=== PATIENT | female | born 1985 | race Caucasian/White ===

== ENCOUNTER 2017-08-20 13:05 | Emergency (ER) | payer SELFPAY ==
[2011-12-03 22:39] VITALS: BP 109/59
[2017-08-20] MEDS ORDERED: Sodium Chloride 0.9% 1000 ML 1,000 ML IV STA ×2 (13:28→14:33)
[2017-08-20] MEDS ORDERED: Phenergan 25 MG INJ IV ONE (13:28)
[2017-08-20] MEDS ORDERED: Sodium Chloride 0.9% 1000 ML 1,000 ML ONE ×2 (13:33→14:46)
[2017-08-20] MEDS ORDERED: Phenergan 25 MG INJ ONE (13:33)
--- NOTE | 2017-08-20 13:34 | ERPHSYRPT ---
- History of Present Illness Time Seen by Provider: 08/20/17 13:24 Source: patient Exam Limitations: no limitations Patient Subjective Stated Complaint: vomting since , nausea, more that ten times today,unable to eat. was seen at [facility] on and given zofran. Triage Nursing Assessment: pt alert, resp easy, skin w/d/p, no pain just nausea , no edema, vomited x1 in waiting room Physician History: 31-year-old white female arrives with complaint of vomiting persistently for 3 days. She has not had any fevers no dysuria no hematuria. She was seen at [facility] 3 days ago she was given a prescription for Zofran. She states that she continues to vomit. Past medical history includes vaginal bacterial infections, hypothyroidism, palpitations, ovarian cysts, GERD, palpitations Past surgical history includes cholecystectomy Timing/Duration: day(s) (3 days) Severity: moderate Modifying Factors: Improves With: other (patient given a prescription at [facility] did not fill apparently has some at home) Associated Symptoms: nausea, vomiting, abdominal pain, No shortness of breath, No heartburn, No diaphoresis, No cough, No chills, No chest pain, No fever, No headaches, No loss of appetite, No malaise, No rash, No syncope, No seizure Allergies/Adverse Reactions: ibuprofen [From Motrin] Allergy (Verified 08/20/17 13:21) Penicillins Allergy (Verified 10/16/14 19:08) sulfamethoxazole [From Bactrim] Allergy (Verified 08/20/17 13:21) trimethoprim [From Bactrim] Allergy (Verified 08/20/17 13:21) Home Medications: Esomeprazole Magnesium [Nexium] 20 mg PO DAILY 10/16/14 [History] Levothyroxine Sodium 50 Mcg [Synthroid 50 Mcg] 50 mcg PO DAILY 10/16/14 [ History] Alprazolam 1 mg [Xanax 1 mg] 1 mg Q6-8HPRN PRN 08/20/17 [History] Diltiazem HCl [Cardizem LA] 120 mg DAILY 08/20/17 [History] Duloxetine HCl 20 mg DAILY 08/20/17 [History] Omeprazole 40 mg BID 08/20/17 [History] Hx Tetanus, Diphtheria Vaccination/Date Given: No Hx Influenza Vaccination/Date Given: No Hx Pneumococcal Vaccination/Date Given: No Immunizations Up to Date: Yes - Review of Systems Constitutional: No Fever, No Chills Eyes: No Symptoms Ears, Nose, & Throat: No Symptoms Respiratory: No Cough, No Dyspnea Cardiac: No Chest Pain, No Edema, No Syncope Abdominal/Gastrointestinal: Abdominal Pain, Nausea, Vomiting Genitourinary Symptoms: No Symptoms Musculoskeletal: No Back Pain, No Neck Pain Skin: No Rash Neurological: No Dizziness, No Focal Weakness, No Sensory Changes Psychological: No Symptoms Endocrine: No Symptoms All Other Systems: Reviewed and Negative - Past Medical History Pertinent Past Medical History: Yes (recurrent vaginal bacterial infections, no hx of STD) Cardiac History: Arrhythmia, Other Endocrine Medical History: Hypothyroidism GI Medical History: GERD Psycho-Social History: Depression Female Reproductive Disorders: Other Other Medical History: Palpitations, bacterial vaginosis, ovarian cysts, - Past Surgical History Past Surgical History: Yes Gastrointestinal: Cholecystectomy Genitourinary: Other - Social History Smoking Status: Former smoker Exposure to second hand smoke: No Drug Use: none Patient Lives Alone: No - Female History Hx Last Menstrual Period: now Hx Now: No - Nursing Vital Signs Nursing Vital Signs: Initial Vital Signs Pulse Rate 72 08/20/17 14:00 Respiratory Rate 16 08/20/17 14:00 Blood Pressure 138/75 08/20/17 14:00 O2 Sat by Pulse Oximetry 98 08/20/17 14:00 Pain Scale Pain Intensity 0 - Physical Exam General Appearance: mild distress, other (well-developed well-nourished white female vomiting) Eye Exam: PERRL/EOMI, eyes nml inspection Ears, Nose, Throat Exam: normal ENT inspection, TMs normal, pharynx normal, moist mucous membranes Neck Exam: normal inspection, non-tender, supple, full range of motion Respiratory Exam: normal breath sounds, lungs clear, No respiratory distress Cardiovascular Exam: regular rate/rhythm Gastrointestinal/Abdomen Exam: soft, normal bowel sounds, tenderness ( periumbilical tenderness) Back Exam: normal inspection, normal range of motion, No CVA tenderness, No vertebral tenderness Extremity Exam: normal inspection, normal range of motion, pelvis stable Neurologic Exam: alert, oriented x 3, cooperative, normal mood/affect, nml cerebellar function, nml station & gait, sensation nml, No motor deficits SpO2 Interpretation: normal (98%) Oxygen Delivery: Room Air Ordered Tests: Active Orders 24 hr Category Date Time Status Clean Catch Urine Specimen STAT Care 08/20/17 13:21 Active IV Insertion STAT Care 08/20/17 13:21 Active AMYLASE Stat Lab 08/20/17 13:30 Completed CBC W DIFF Stat Lab 08/20/17 13:30 Completed CMP Stat Lab 08/20/17 13:30 Completed HCG QUALITATIVE,SERUM Stat Lab 08/20/17 13:30 Completed LIPASE Stat Lab 08/20/17 13:30 Completed UA W/ MICROSCOPIC Stat Lab 08/20/17 13:30 Results Medication Summary Generic Name Dose Route Start Last Admin Trade Name Freq PRN Reason Stop Dose Admin Sodium Chloride 1,000 mls @ 999 mls/hr 08/20/17 14:33 08/20/17 14:49 Sodium Chloride 0.9% 1000 Ml IV 08/20/17 15:33 999 mls/hr .Q1H1M STA Administration Discontinued Medications Generic Name Dose Route Start Last Admin Trade Name Freq PRN Reason Stop Dose Admin Sodium Chloride 1,000 mls @ 999 mls/hr 08/20/17 13:28 08/20/17 14:47 Sodium Chloride 0.9% 1000 Ml IV 08/20/17 14:28 Infused .Q1H1M STA Infusion Sodium Chloride Confirm 08/20/17 13:33 Sodium Chloride 0.9% 1000 Ml Administered 08/20/17 13:34 Dose 1,000 mls @ ud .ROUTE .STK-MED ONE Sodium Chloride Confirm 08/20/17 14:46 Sodium Chloride 0.9% 1000 Ml Administered 08/20/17 14:47 Dose 1,000 mls @ ud .ROUTE .STK-MED ONE Ondansetron HCl 4 mg 08/20/17 14:45 08/20/17 14:49 Zofran 4 Mg/2 Ml Vial IV 08/20/17 14:46 4 mg STAT ONE Administration Ondansetron HCl Confirm 08/20/17 14:46 Zofran 4 Mg/2 Ml Vial Administered 08/20/17 14:47 Dose 4 mg .ROUTE .STK-MED ONE Promethazine HCl 12.5 mg 08/20/17 13:28 08/20/17 13:37 Phenergan 25 Mg Inj IV 08/20/17 13:29 12.5 mg STAT ONE Administration Promethazine HCl Confirm 08/20/17 13:33 Phenergan 25 Mg Inj Administered 08/20/17 13:34 Dose 25 mg .ROUTE .STK-MED ONE Lab/Rad Data: Laboratory Result Diagrams 08/20/17 13:30 08/20/17 13:30 Laboratory Results 08/20/17 08/20/17 08/20/17 Range/Units 13:30 13:30 13:30 WBC (4.0-10.5) K/mm3 RBC (4.1-5.4) M/mm3 Hgb (12.0-16.0) gm/dl Hct (35-47) % MCV (78-100) fl MCH (26-32) pg MCHC (32-36) g/dl RDW (11.5-14.0) % Plt Count (150-450) K/mm3 MPV (6-9.5) fl Gran % (36.0-66.0) % Eos # (Auto) (0-0.5) Absolute Lymphs (auto) (1.0-4.6) Absolute Monos (auto) (0.0-1.3) Lymphocytes % (24.0-44.0) % Monocytes % (0.0-12.0) % Eosinophils % (0.00-5.0) % Basophils % (0.0-0.4) % Absolute Granulocytes (1.4-6.9) Basophils # (0-0.4) Sodium 138 (137-145) mmol/L Potassium 3.5 (3.5-5.1) mmol/L Chloride 97 L (98-107) mmol/L Carbon Dioxide 29 (22-30) mmol/L Anion Gap 15.4 H (5-15) MEQ/L BUN 16 (7-17) mg/dL Creatinine 0.74 (0.52-1.04) mg/dL Estimated GFR > 60.0 ML/MIN Glucose 102 (74-106) mg/dL Calcium 9.9 (8.4-10.2) mg/dL Total Bilirubin 0.80 (0.2-1.3) mg/dL AST 21 (14-36) U/L ALT 21 (0-35) U/L Alkaline Phosphatase 76 (38-126) U/L Serum Total Protein 8.1 (6.3-8.2) g/dL Albumin 5.0 (3.5-5.0) g/dL Amylase 69 (30-110) U/L Lipase 40 (23-300) U/L Serum , Qual NEGATIVE (Negative) Ur Collection Type VOID Urine Color YELLOW (YELLOW) Urine Appearance HAZY (CLEAR) Urine pH 7.0 (5-6) Ur Specific [place] 1.010 (1.005-1.025) Urine Protein NEGATIVE (Negative) Urine Ketones TRACE (NEGATIVE) Urine Blood 50 (0-5) Matthew/ul Urine Nitrite NEGATIVE (NEGATIVE) Urine Bilirubin NEGATIVE (NEGATIVE) Urine Urobilinogen NORMAL (0-1) mg/dL Ur Leukocyte Esterase TRACE (NEGATIVE) Urine Microscopic RBC 2-5 (0-2) /HPF Urine Microscopic WBC 0-2 (0-5) /HPF Ur Epithelial Cells MODERATE (FEW) /HPF Urine Bacteria FEW (NEGATIVE) /HPF Urine Culture Reflexed Pending Urine Glucose NEGATIVE (NEGATIVE) mg/dL Specimen Received 08/20/2017 1400 08/20/17 Range/Units 13:30 WBC 14.2 H (4.0-10.5) K/mm3 RBC 5.69 H (4.1-5.4) M/mm3 Hgb 16.1 H (12.0-16.0) gm/dl Hct 47.5 H (35-47) % MCV 83.5 (78-100) fl MCH 28.2 (26-32) pg MCHC 33.9 (32-36) g/dl RDW 14.1 H (11.5-14.0) % Plt Count 419 (150-450) K/mm3 MPV 11.1 H (6-9.5) fl Gran % 76.7 H (36.0-66.0) % Eos # (Auto) 0.01 (0-0.5) Absolute Lymphs (auto) 2.32 (1.0-4.6) Absolute Monos (auto) 0.97 (0.0-1.3) Lymphocytes % 16.3 L (24.0-44.0) % Monocytes % 6.8 (0.0-12.0) % Eosinophils % 0.1 (0.00-5.0) % Basophils % 0.1 (0.0-0.4) % Absolute Granulocytes 10.87 H (1.4-6.9) Basophils # 0.02 (0-0.4) Sodium (137-145) mmol/L Potassium (3.5-5.1) mmol/L Chloride (98-107) mmol/L Carbon Dioxide (22-30) mmol/L Anion Gap (5-15) MEQ/L BUN (7-17) mg/dL Creatinine (0.52-1.04) mg/dL Estimated GFR ML/MIN Glucose (74-106) mg/dL Calcium (8.4-10.2) mg/dL Total Bilirubin (0.2-1.3) mg/dL AST (14-36) U/L ALT (0-35) U/L Alkaline Phosphatase (38-126) U/L Serum Total Protein (6.3-8.2) g/dL Albumin (3.5-5.0) g/dL Amylase (30-110) U/L Lipase (23-300) U/L Serum , Qual (Negative) Ur Collection Type Urine Color (YELLOW) Urine Appearance (CLEAR) Urine pH (5-6) Ur Specific [place] (1.005-1.025) Urine Protein (Negative) Urine Ketones (NEGATIVE) Urine Blood (0-5) Matthew/ul Urine Nitrite (NEGATIVE) Urine Bilirubin (NEGATIVE) Urine Urobilinogen (0-1) mg/dL Ur Leukocyte Esterase (NEGATIVE) Urine Microscopic RBC (0-2) /HPF Urine Microscopic WBC (0-5) /HPF Ur Epithelial Cells (FEW) /HPF Urine Bacteria (NEGATIVE) /HPF Urine Culture Reflexed Urine Glucose (NEGATIVE) mg/dL Specimen Received - Progress Progress: improved Progress Note: 08/20/17 14:21 31-year-old white female arrives with complaint of vomiting for 3 days she stated that she had some periumbilical tenderness mostly from vomiting patient states she was seen at [facility] 3 days ago she states she was given a pain medication also given Zofran. She states she continued to vomit she apparently did not fill her Zofran she states she had this at home. When I walk into the room patient is sitting up and of vomiting I do not see a lot of production I sent for old chart from [facility] from August 18, 2017 chart at [facility] shows that patient has a history of GERD, celiac disease esophageal cancer, fibromyalgia, EGD She apparently had begun vomiting on 18 August after eating at [email or web address] patient had a white count at [facility] 17.2 hemoglobin 15.2, hematocrit 45.9 Patient's chemistry showed a sodium of 140 potassium 3.4 chloride 105 bicarbonate 27 BUN 8 creatinine 0.8 glucose 140 patient's urinalysis at that time showed a specific gravity 1.013 pH of 80-2 white cells and 0-5 red cells Urine tox screen showed opiates positive and cannabinoids positive Patient's CT of the abdomen done at [facility] also showed a small low density lesion in the inferior right lower lobe which may represent a partially calcified granuloma or harmatoma there were no acute abnormalities noted. Patient was given fentanyl at [facility], and Compazine she was discharged with a prescription for Zofran patient apparently does have a history of celiac disease and apparently had been having intermittent abdominal pain for 5 years according to the ER doctor at [facility] On arrival here patient is vomiting she has some. Umbilical tenderness. She is given 1 L of normal saline also given 12.5 mg of Phenergan IV Patient's chemistry is essentially normal with the BUN of 16 creatinine 0.74 glucose 102 sodium is 135 potassium 3.5 chloride is slightly low at 97 amylase and lipase are 69 and 40 patient white count is elevated but improved from 3 days ago with a white count of 14.2 hemoglobin is 16.1 hematocrit is 47.5 hCG is negative Impression persistent nausea and vomiting. History of celiac disorder. . 08/20/17 14:33 I rechecked the patient she is feeling better after receiving the IV normal saline and the Phenergan. Patient does have a white count of 14,000 but this is improved from 17,000 3 days ago she is not . She does state that she does have a history of celiac disease. Patient's chemistry is normal today. Will plan to give patient a second liter of normal saline. Will plan on read releasing the patient with Phenergan 25 mg orally every 4-6 hours as needed for nausea and vomiting. I did explore the patient's positive cannabinoids with the patient she states she uses marijuana secondary to nausea. I did state that there is such a thing as cyclic vomiting syndrome which can occur with marijuana use. She stated she hasn't been smoking for 3 or 4 days. - Departure Time of Disposition: 15:05 Departure Disposition: Home Clinical Impression: History of celiac disease Vomiting Qualifiers: Vomiting type: unspecified Vomiting Intractability: non-intractable Nausea presence: with nausea Qualified Code(s): R11.2 - Nausea with vomiting, unspecified Abdominal pain Qualifiers: Abdominal location: periumbilical Qualified Code(s): R10.33 - Periumbilical pain Condition: Fair Critical Care Time: No Referrals: DUKE MOLINA [Primary Care Provider] - Additional Instructions: Return home. Plenty of fluids, clear fluids only 24-48 hours if nausea and vomiting. Phenergan 25 mg orally every 4-6 hours as needed for nausea and vomiting. Zofran as prescribed by [facility]. Follow-up with your family doctor. Return for acute distress or for severe symptoms. Prescriptions: Promethazine HCl 25 mg [Phenergan 25 mg] 25 mg PO Q4-6HPRN PRN #12 tablet PRN Reason: nausea,vomiting, or abd. pain
[2017-08-20 13:36] LABS: BASOPHIL % 0.1 % (0.0-0.4); Basophil (Absolute #) 0.02 (0-0.4); Eosinophil % 0.1 % (0.00-5.0); Eosinophil (Absolute #) 0.01 (0-0.5); Granulocyte Absolute (ANC) 10.87 (1.4-6.9); Granulocytes % 76.7 % (36.0-66.0); Hematocrit 47.5 % (35-47); Hemoglobin 16.1 gm/dl (12.0-16.0); Lymphocyte (Absolute #) 2.32 (1.0-4.6); Lymphocytes % 16.3 % (24.0-44.0); Mean Cell Volume 83.5 fl (78-100); Mean Corpuscular Hgb Concent. 33.9 g/dl (32-36); Mean Platelet Volume 11.1 fl (6-9.5); Monocyte (Absolute #) 0.97 (0.0-1.3); Monocytes % 6.8 % (0.0-12.0); Platelet Count 419 K/mm3 (150-450); Red Blood Count 5.69 M/mm3 (4.1-5.4); Red Cell Distribution Width 14.1 % (11.5-14.0); White Blood Count 14.2 K/mm3 (4.0-10.5)
[2017-08-20 13:48] LABS: Mean Corpuscular Hemoglobin 28.2 pg (26-32)
[2017-08-20 14:07] LABS: ALKALINE PHOSPHATASE 76 U/L (38-126); AMYLASE 69 U/L (30-110); ANION GAP 15.4 MEQ/L (5-15); BLOOD UREA NITROGEN 16 mg/dL (7-17); CHLORIDE 97 mmol/L (98-107); Calcium 9.9 mg/dL (8.4-10.2); Carbon Dioxide 29 mmol/L (22-30); Creatinine 1 0.74 mg/dL (0.52-1.04); Glucose 102 mg/dL (74-106); LIPASE 40 U/L (23-300); Potassium 3.5 mmol/L (3.5-5.1); SGOT/AST 21 U/L (14-36); SGPT/ALT 21 U/L (0-35); SODIUM 138 mmol/L (137-145); Total Protein 8.1 g/dL (6.3-8.2)
[2017-08-20 14:22] LABS: Appearance HAZY (CLEAR); Bilirubin NEGATIVE (NEGATIVE); Blood 50 Ery/ul (0-5); Glucose NEGATIVE (NEGATIVE); Ketones TRACE (NEGATIVE); Leukocyte Esterase TRACE (NEGATIVE); Nitrite NEGATIVE (NEGATIVE); Protein,Urine Dip NEGATIVE (Negative); Urobilinogen NORMAL mg/dL (0-1); WBC 0-2 /HPF (0-5)
[2017-08-20 14:23] LABS: Bacteria FEW /HPF (NEGATIVE); Epithelial Cells MODERATE /HPF (FEW)
[2017-08-20] MEDS ORDERED: Zofran 4 MG/2 ML VIAL IV ONE (14:45)
[2017-08-20] MEDS ORDERED: Zofran 4 MG/2 ML VIAL ONE (14:46)
[2017-08-20 15:52] VITALS: BP 131/80; PULSE 70; O2SAT 97
== END 2017-08-20 15:53 | disposition home or self-care (01) ==
LOC: ED 13:05
DX: R11.2 Nausea with vomiting, unspecified (principal); R10.33 Periumbilical pain; Z79.899 Other long term (current) drug therapy; Z87.19 Personal history of other diseases of the digestive system
CPT/HCPCS: 36000; 36415; 80053; 81000; 82150; 83690; 84703; 85025; 96360; 96374; 96375; 99284; J2405; J2550

== ENCOUNTER 2017-08-23 12:47 | Observation (INO) | payer OTHER ==
[2017-08-23] MEDS ORDERED: Sodium Chloride 0.9% 1000 ML 1,000 ML IV STA (13:21)
[2017-08-23] MEDS ORDERED: Zofran 4 MG/2 ML VIAL IV ONE (13:21)
--- NOTE | 2017-08-23 13:28 | ERPHSYRPT ---
- History of Present Illness Time Seen by Provider: 08/23/17 13:19 Source: patient Exam Limitations: no limitations Patient Subjective Stated Complaint: pt here for n/v/ since , was seen here sat for samething and was given zofran and phenergan with no relief, Triage Nursing Assessment: pt alert, resp easy, skin w/d/p. abd soft, no edema, mucus membranse moist Physician History: This is a 31-year-old white female who was seen on August 20, 2017 secondary to nausea and vomiting and epigastric pain She had prior to this been seen at [facility] where she received an extensive workup for the same On August 18, [address] of the abdomen at that time which was normal. She was discharged from the emergency room here at [facility] on August 20, 2016 with a prescription for Phenergan she had a prescriptions for Zofran at home. She states she continues to vomit. Past medical history includes hypothyroidism, arrhythmia, GERD, depression, palpitations, bacterial vaginosis, ovarian cysts. Past surgical history includes cholecystectomy. Social history is positive for alcohol occasionally and occasional marijuana use. Timing/Duration: day(s) (5 days) Severity: moderate Modifying Factors: Improves With: nothing Associated Symptoms: nausea, vomiting, abdominal pain (epigastric abdominal pain ) Allergies/Adverse Reactions: ibuprofen [From Motrin] Allergy (Verified 08/23/17 13:10) Penicillins Allergy (Verified 08/23/17 13:10) sulfamethoxazole [From Bactrim] Allergy (Verified 08/23/17 13:10) trimethoprim [From Bactrim] Allergy (Verified 08/23/17 13:10) Home Medications: Esomeprazole Magnesium [Nexium] 20 mg PO DAILY 10/16/14 [History] Levothyroxine Sodium 50 Mcg [Synthroid 50 Mcg] 50 mcg PO DAILY 10/16/14 [ History] Alprazolam 1 mg [Xanax 1 mg] 1 mg Q6-8HPRN PRN 08/20/17 [History] Diltiazem HCl [Cardizem LA] 120 mg DAILY 08/20/17 [History] Duloxetine HCl 20 mg DAILY 08/20/17 [History] Omeprazole 40 mg BID 08/20/17 [History] Hx Tetanus, Diphtheria Vaccination/Date Given: No Hx Influenza Vaccination/Date Given: No Hx Pneumococcal Vaccination/Date Given: No - Review of Systems Constitutional: No Fever, No Chills Eyes: No Symptoms Ears, Nose, & Throat: No Symptoms Respiratory: No Cough, No Dyspnea Cardiac: No Chest Pain, No Edema, No Syncope Abdominal/Gastrointestinal: Abdominal Pain, Nausea, Vomiting Genitourinary Symptoms: No Dysuria Musculoskeletal: No Back Pain, No Neck Pain Skin: No Rash Neurological: No Dizziness, No Focal Weakness, No Sensory Changes Psychological: No Symptoms Endocrine: No Symptoms All Other Systems: Reviewed and Negative - Past Medical History Pertinent Past Medical History: Yes (recurrent vaginal bacterial infections, no hx of STD) Cardiac History: Arrhythmia, Other Endocrine Medical History: Hypothyroidism GI Medical History: GERD Psycho-Social History: Depression Female Reproductive Disorders: Other Other Medical History: Palpitations, bacterial vaginosis, ovarian cysts, - Past Surgical History Past Surgical History: Yes Gastrointestinal: Cholecystectomy Genitourinary: Other - Social History Smoking Status: Former smoker Exposure to second hand smoke: No Drug Use: marijuana Patient Lives Alone: No - Female History Hx Last Menstrual Period: yesterday Hx Now: No - Nursing Vital Signs Nursing Vital Signs: Initial Vital Signs Temperature 97.6 F 08/23/17 13:03 Pulse Rate 92 H 08/23/17 13:03 Respiratory Rate 18 08/23/17 13:03 Blood Pressure 123/94 08/23/17 13:03 O2 Sat by Pulse Oximetry 99 08/23/17 13:03 Pain Scale Pain Intensity 0 - Physical Exam General Appearance: mild distress, alert Eye Exam: PERRL/EOMI, eyes nml inspection Ears, Nose, Throat Exam: normal ENT inspection, TMs normal, pharynx normal, moist mucous membranes Neck Exam: normal inspection, non-tender, supple, full range of motion Respiratory Exam: normal breath sounds, lungs clear, No respiratory distress Cardiovascular Exam: regular rate/rhythm, normal heart sounds, normal peripheral pulses Gastrointestinal/Abdomen Exam: soft, normal bowel sounds, No tenderness, No mass Back Exam: normal inspection, normal range of motion, No CVA tenderness, No vertebral tenderness Extremity Exam: normal inspection, normal range of motion, pelvis stable Neurologic Exam: alert, oriented x 3, cooperative, electric solderer II-XII nml as tested, normal mood/affect, nml cerebellar function, nml station & gait, sensation nml, No motor deficits Skin Exam: normal color, warm, dry, No rash Lymphatic Exam: No adenopathy SpO2 Interpretation: normal (99%), borderline oxygenation SpO2: 99 Oxygen Delivery: Room Air Ordered Tests: Active Orders 24 hr Category Date Time Status IV Insertion STAT Care 08/23/17 13:21 Active AMYLASE Stat Lab 08/23/17 13:30 Completed CBC W DIFF Stat Lab 08/23/17 13:30 Completed CMP Stat Lab 08/23/17 13:30 Completed CULTURE,URINE Stat Lab 08/23/17 13:28 Received HCG QUALITATIVE,SERUM Stat Lab 08/23/17 13:30 Completed LIPASE Stat Lab 08/23/17 13:30 Completed UA W/ MICROSCOPIC Stat Lab 08/23/17 13:28 Completed Urine Triage Profile Stat Lab 08/23/17 13:56 Ordered Medication Summary Discontinued Medications Generic Name Dose Route Start Last Admin Trade Name Freq PRN Reason Stop Dose Admin Sodium Chloride 1,000 mls @ 999 mls/hr 08/23/17 13:21 08/23/17 14:00 Sodium Chloride 0.9% 1000 Ml IV 08/23/17 14:21 999 mls/hr .Q1H1M STA Administration Sodium Chloride Confirm 08/23/17 13:59 Sodium Chloride 0.9% 1000 Ml Administered 08/23/17 14:00 Dose 1,000 mls @ ud .ROUTE .STK-MED ONE Ondansetron HCl 4 mg 08/23/17 13:21 08/23/17 14:00 Zofran 4 Mg/2 Ml Vial IV 08/23/17 13:22 4 mg STAT ONE Administration Ondansetron HCl Confirm 08/23/17 13:58 Zofran 4 Mg/2 Ml Vial Administered 08/23/17 13:59 Dose 4 mg .ROUTE .STK-MED ONE Lab/Rad Data: Laboratory Result Diagrams 08/23/17 13:30 08/23/17 13:30 Laboratory Results 08/23/17 08/23/17 08/23/17 Range/Units 13:30 13:30 13:30 WBC 13.8 H (4.0-10.5) K/mm3 RBC 6.00 H (4.1-5.4) M/mm3 Hgb 17.2 H (12.0-16.0) gm/dl Hct 48.9 H (35-47) % MCV 81.5 (78-100) fl MCH 28.6 (26-32) pg MCHC 35.2 (32-36) g/dl RDW 13.8 (11.5-14.0) % Plt Count 380 (150-450) K/mm3 MPV 10.5 H (6-9.5) fl Gran % 81.6 H (36.0-66.0) % Eos # (Auto) 0.02 (0-0.5) Absolute Lymphs (auto) 1.70 (1.0-4.6) Absolute Monos (auto) 0.81 (0.0-1.3) Lymphocytes % 12.3 L (24.0-44.0) % Monocytes % 5.9 (0.0-12.0) % Eosinophils % 0.1 (0.00-5.0) % Basophils % 0.1 (0.0-0.4) % Absolute Granulocytes 11.24 H (1.4-6.9) Basophils # 0.02 (0-0.4) Sodium 137 (137-145) mmol/L Potassium 3.7 (3.5-5.1) mmol/L Chloride 96 L (98-107) mmol/L Carbon Dioxide 28 (22-30) mmol/L Anion Gap 16.8 H (5-15) MEQ/L BUN 14 (7-17) mg/dL Creatinine 0.72 (0.52-1.04) mg/dL Estimated GFR > 60.0 ML/MIN Glucose 119 H (74-106) mg/dL Calcium 9.7 (8.4-10.2) mg/dL Total Bilirubin 1.20 (0.2-1.3) mg/dL AST 64 H (14-36) U/L ALT 132 H (0-35) U/L Alkaline Phosphatase 83 (38-126) U/L Serum Total Protein 8.6 H (6.3-8.2) g/dL Albumin 5.1 H (3.5-5.0) g/dL Amylase 77 (30-110) U/L Lipase 65 (23-300) U/L Serum , Qual NEGATIVE (Negative) Ur Collection Type Urine Color (YELLOW) Urine Appearance (CLEAR) Urine pH (5-6) Ur Specific [place] (1.005-1.025) Urine Protein (Negative) Urine Ketones (NEGATIVE) Urine Blood (0-5) Matthew/ul Urine Nitrite (NEGATIVE) Urine Bilirubin (NEGATIVE) Urine Urobilinogen (0-1) mg/dL Ur Leukocyte Esterase (NEGATIVE) Urine Microscopic RBC (0-2) /HPF Urine Microscopic WBC (0-5) /HPF Ur Epithelial Cells (FEW) /HPF Urine Bacteria (NEGATIVE) /HPF Urine Mucus (NEGATIVE) /HPF Urine Culture Reflexed (NO) Urine Glucose (NEGATIVE) mg/dL Specimen Received 08/23/17 Range/Units 13:28 WBC (4.0-10.5) K/mm3 RBC (4.1-5.4) M/mm3 Hgb (12.0-16.0) gm/dl Hct (35-47) % MCV (78-100) fl MCH (26-32) pg MCHC (32-36) g/dl RDW (11.5-14.0) % Plt Count (150-450) K/mm3 MPV (6-9.5) fl Gran % (36.0-66.0) % Eos # (Auto) (0-0.5) Absolute Lymphs (auto) (1.0-4.6) Absolute Monos (auto) (0.0-1.3) Lymphocytes % (24.0-44.0) % Monocytes % (0.0-12.0) % Eosinophils % (0.00-5.0) % Basophils % (0.0-0.4) % Absolute Granulocytes (1.4-6.9) Basophils # (0-0.4) Sodium (137-145) mmol/L Potassium (3.5-5.1) mmol/L Chloride (98-107) mmol/L Carbon Dioxide (22-30) mmol/L Anion Gap (5-15) MEQ/L BUN (7-17) mg/dL Creatinine (0.52-1.04) mg/dL Estimated GFR ML/MIN Glucose (74-106) mg/dL Calcium (8.4-10.2) mg/dL Total Bilirubin (0.2-1.3) mg/dL AST (14-36) U/L ALT (0-35) U/L Alkaline Phosphatase (38-126) U/L Serum Total Protein (6.3-8.2) g/dL Albumin (3.5-5.0) g/dL Amylase (30-110) U/L Lipase (23-300) U/L Serum , Qual (Negative) Ur Collection Type CLEAN CATCH Urine Color DARK YELLOW (YELLOW) Urine Appearance HAZY (CLEAR) Urine pH 5.0 (5-6) Ur Specific [place] 1.025 (1.005-1.025) Urine Protein 100 (Negative) Urine Ketones MODERATE (NEGATIVE) Urine Blood 250 (0-5) Matthew/ul Urine Nitrite NEGATIVE (NEGATIVE) Urine Bilirubin SMALL (NEGATIVE) Urine Urobilinogen 1 (0-1) mg/dL Ur Leukocyte Esterase 2+ (NEGATIVE) Urine Microscopic RBC 5-10 (0-2) /HPF Urine Microscopic WBC 5-10 (0-5) /HPF Ur Epithelial Cells FEW (FEW) /HPF Urine Bacteria MODERATE (NEGATIVE) /HPF Urine Mucus MANY (NEGATIVE) /HPF Urine Culture Reflexed YES (NO) Urine Glucose NEGATIVE (NEGATIVE) mg/dL Specimen Received 08-23-2017 1330 - Progress Progress: improved Progress Note: 08/23/17 14:33 31-year-old white female who was seen at [facility] on August 18, 2017, she was also seen on August 20 here in the emergency room secondary to epigastric pain and and vomiting. Patient had a CT of the abdomen and pelvis at [facility] on 18 August she was given Zofran. She presented to this emergency room for continuing vomiting despite Zofran patient had a CBC that showed an elevated white count of around [address] [facility] 14.2 at this hospital on the she has a white count of 13.8 currently patient's chemistry is essentially normal with the exception of mild elevation in the SGPT and AST patient does have some ketones in her urine patient's anion gap was 16.8 patient with 5-10 white cells 5-10 red cells in her urine but negative nitrites Patient is given 1 L of normal saline she is given Zofran 4 mg IV. She continues to feel nauseous I've discussed this with Dr. Alegre will place patient on observation. order an abdominal ultrasound in the morning provide IV fluids and antiemetics 08/23/17 14:41 - Departure Time of Disposition: 14:42 Departure Disposition: Observation Clinical Impression: persistent nausea and vomiting Abdominal pain Qualifiers: Abdominal location: periumbilical Qualified Code(s): R10.33 - Periumbilical pain Condition: Fair Critical Care Time: No Referrals: DUKE ALEGRE [Primary Care Provider] -
[2017-08-23 13:33] LABS: BASOPHIL % 0.1 % (0.0-0.4); Basophil (Absolute #) 0.02 (0-0.4); Eosinophil % 0.1 % (0.00-5.0); Eosinophil (Absolute #) 0.02 (0-0.5); Granulocyte Absolute (ANC) 11.24 (1.4-6.9); Granulocytes % 81.6 % (36.0-66.0); Hematocrit 48.9 % (35-47); Hemoglobin 17.2 gm/dl (12.0-16.0); Lymphocytes % 12.3 % (24.0-44.0); Mean Cell Volume 81.5 fl (78-100); Mean Corpuscular Hgb Concent. 35.2 g/dl (32-36); Mean Platelet Volume 10.5 fl (6-9.5); Monocyte (Absolute #) 0.81 (0.0-1.3); Monocytes % 5.9 % (0.0-12.0); Platelet Count 380 K/mm3 (150-450); Red Cell Distribution Width 13.8 % (11.5-14.0); White Blood Count 13.8 K/mm3 (4.0-10.5)
[2017-08-23 13:35] LABS: Mean Corpuscular Hemoglobin 28.6 pg (26-32)
[2017-08-23] MEDS ORDERED: Zofran 4 MG/2 ML VIAL ONE (13:58)
[2017-08-23] MEDS ORDERED: Sodium Chloride 0.9% 1000 ML 1,000 ML ONE (13:59)
[2017-08-23 14:02] LABS: ALBUMIN 5.1 g/dL (3.5-5.0); ALKALINE PHOSPHATASE 83 U/L (38-126); AMYLASE 77 U/L (30-110); ANION GAP 16.8 MEQ/L (5-15); BLOOD UREA NITROGEN 14 mg/dL (7-17); CHLORIDE 96 mmol/L (98-107); Calcium 9.7 mg/dL (8.4-10.2); Carbon Dioxide 28 mmol/L (22-30); Creatinine 1 0.72 mg/dL (0.52-1.04); Glucose 119 mg/dL (74-106); LIPASE 65 U/L (23-300); Potassium 3.7 mmol/L (3.5-5.1); SGOT/AST 64 U/L (14-36); SGPT/ALT 132 U/L (0-35); SODIUM 137 mmol/L (137-145); Total Protein 8.6 g/dL (6.3-8.2)
[2017-08-23 14:05] LABS: Appearance HAZY (CLEAR); Bacteria MODERATE /HPF (NEGATIVE); Bilirubin SMALL (NEGATIVE); Blood 250 Ery/ul (0-5); Epithelial Cells FEW /HPF (FEW); Glucose NEGATIVE (NEGATIVE); Ketones MODERATE (NEGATIVE); Leukocyte Esterase 2+ (NEGATIVE); Mucus MANY /HPF (NEGATIVE); Nitrite NEGATIVE (NEGATIVE); Protein,Urine Dip 100 (Negative); Specific Gravity 1.025 (1.005-1.025); Urobilinogen 1 mg/dL (0-1)
[2017-08-23 14:53] LABS: Amphetamine,Urine NEGATIVE (NEGATIVE); Barbiturate,Urine NEGATIVE (NEGATIVE); Benzodiazepine,Urine POSITIVE (NEGATIVE); Cocaine,Urine NEGATIVE (NEGATIVE); Methadone,Urine NEGATIVE (NEGATIVE); Opiate,Urine NEGATIVE (NEGATIVE); PCP,Urine NEGATIVE (NEGATIVE); THC,Urine POSITIVE (NEGATIVE)
[2017-08-23] MEDS ORDERED: TORAdol 30 mg Injection IV PRN (16:01)
[2017-08-23] MEDS: Phenergan 25 MG INJ IV PRN ×2 (16:04→22:04)
[2017-08-23] MEDS ORDERED: XANAX 1 MG PO PRN (16:30)
[2017-08-23] MEDS ORDERED: MEDICATION INTERVENTION PO SCH (16:45)
[2017-08-23] MEDS ORDERED: Cardizem CD 120 MG PO SCH (17:00)
[2017-08-23] MEDS: Sodium Chloride 0.9% 1000 ML 1,000 ML IV SCH (18:59)
[2017-08-23] MEDS: Zofran 4 MG/2 ML VIAL IV PRN (19:00)
[2017-08-23] MEDS: Protonix 40MG Tablet PO SCH (22:02)
[2017-08-23] MEDS: Cardizem CD 120 MG PO SCH (22:03)
[2017-08-23] MEDS: Cymbalta 30 MG Capsule PO SCH (22:03)
[2017-08-23] MEDS: SYNTHROID 50 MCG PO SCH (22:03)
[2017-08-24] MEDS: Zofran 4 MG/2 ML VIAL IV PRN (03:44)
[2017-08-24] MEDS: Sodium Chloride 0.9% 1000 ML 1,000 ML IV SCH ×2 (05:28→16:09)
[2017-08-24 05:48] LABS: BASOPHIL % 0.2 % (0.0-0.4); Basophil (Absolute #) 0.02 (0-0.4); Eosinophil % 1.5 % (0.00-5.0); Eosinophil (Absolute #) 0.14 (0-0.5); Granulocyte Absolute (ANC) 4.57 (1.4-6.9); Granulocytes % 49.1 % (36.0-66.0); Hematocrit 41.7 % (35-47); Hemoglobin 14.1 gm/dl (12.0-16.0); Lymphocyte (Absolute #) 3.49 (1.0-4.6); Lymphocytes % 37.4 % (24.0-44.0); Mean Cell Volume 84.1 fl (78-100); Mean Corpuscular Hemoglobin 28.4 pg (26-32); Mean Corpuscular Hgb Concent. 33.8 g/dl (32-36); Mean Platelet Volume 10.7 fl (6-9.5); Monocytes % 11.8 % (0.0-12.0); Platelet Count 283 K/mm3 (150-450); Red Blood Count 4.96 M/mm3 (4.1-5.4); Red Cell Distribution Width 13.5 % (11.5-14.0); White Blood Count 9.3 K/mm3 (4.0-10.5)
[2017-08-24 06:11] LABS: ALBUMIN 3.7 g/dL (3.5-5.0); ALKALINE PHOSPHATASE 65 U/L (38-126); AMYLASE 68 U/L (30-110); ANION GAP 11.9 MEQ/L (5-15); BLOOD UREA NITROGEN 13 mg/dL (7-17); CHLORIDE 102 mmol/L (98-107); Calcium 8.6 mg/dL (8.4-10.2); Carbon Dioxide 28 mmol/L (22-30); Creatinine 1 0.76 mg/dL (0.52-1.04); Glucose 90 mg/dL (74-106); SGOT/AST 47 U/L (14-36); SGPT/ALT 97 U/L (0-35); SODIUM 139 mmol/L (137-145); Total Protein 6.3 g/dL (6.3-8.2)
[2017-08-24 06:24] LABS: Potassium 2.9 mmol/L (3.5-5.1)
[2017-08-24] MEDS: Phenergan 25 MG INJ IV PRN (07:05)
[2017-08-24] MEDS ORDERED: Miralax Powder 17GM PACKET PO PRN (07:34)
[2017-08-24 08:13] LABS: Appearance HAZY (CLEAR); Bilirubin NEGATIVE (NEGATIVE); Glucose NEGATIVE (NEGATIVE); Ketones MODERATE (NEGATIVE); Leukocyte Esterase TRACE (NEGATIVE); Nitrite NEGATIVE (NEGATIVE); Protein,Urine Dip NEGATIVE (Negative); Urobilinogen 1 mg/dL (0-1)
[2017-08-24 08:14] LABS: Blood NEGATIVE Ery/ul (0-5)
[2017-08-24] MEDS: POTASSIUM CHLORIDE 20 mEq IN WATER 100ML 20 MEQ/100 ML BAG IV SCH ×2 (08:22→11:48)
[2017-08-24] MEDS: D5W/0.45NS W/ 20mEq KCl 1000 ML 1,000 ML IV SCH ×2 (08:22→17:45)
[2017-08-24] MEDS: Cymbalta 30 MG Capsule PO SCH (08:40)
[2017-08-24] MEDS: Protonix 40MG Tablet PO SCH ×2 (08:40→21:33)
[2017-08-24] MEDS: Cardizem CD 120 MG PO SCH ×2 (08:40→21:33)
[2017-08-24] MEDS: SYNTHROID 50 MCG PO SCH (08:40)
[2017-08-24] MEDS ORDERED: Levofloxacin 500MG/100ML D5W 500 MG/100 ML BAG IV SCH (10:00)
[2017-08-24] MEDS ORDERED: NON-FORMULARY ITEM (Duloxetine Hcl [Cymbalta] 60 MG) PO SCH (10:00)
--- NOTE | 2017-08-24 11:10 | XRAY ---
Exam: Liver ultrasound from 08/24/2017. Comparison: CT of the abdomen and pelvis with IV contrast from 08/09/2011. Indication: Elevated liver enzymes, nausea/vomiting. Technique: Multiple longitudinal and transverse real-time sonograms were obtained of the liver and right upper quadrant. Findings: The liver is of unremarkable size measuring 12.8 cm in AP dimension on a sagittal image. Liver acoustical architecture appears uniform. No focal hepatic mass or intrahepatic biliary duct distention is seen. Hepatopetal blood flow toward the liver within the portal vein is seen (i.e. normal). The proximal common bile duct measures 4.4 mm. The patient is status post cholecystectomy, and this structure was not visualized. The right kidney measures 10.7 cm in length and reveals no focal mass or hydronephrosis. No free fluid is seen within the right upper quadrant. Transverse images of the pancreas reveal nonvisualization of the distal tail due to adjacent bowel gas. The remainder of the pancreas appears unremarkable. Impression: 1. No sonographic abnormality of the liver is seen. 2. The patient is status post cholecystectomy. 3. The remainder of the right upper quadrant reveal no significant abnormality.
--- NOTE | 2017-08-24 11:17 | XRAY ---
Exam: Renal ultrasound exam from 08/24/2017. Comparison: CT of the abdomen and pelvis with IV contrast from 08/09/2011. Indication: Back pain. Findings: The right kidney measures 10.5 cm in length and 4.4 cm x 4.4 cm in cross section. The right kidney reveals an unremarkable shape and cortical echogenicity. Renal cortex thickness within the lower pole is 1.2 cm on a sagittal image. No right renal mass or hydronephrosis is seen. Color flow imaging within the right kidney appears unremarkable. The left kidney measures 11.95 cm in length and 5.55 cm x 4.9 cm in cross section. Left renal cortical echogenicity and renal shape appear unremarkable. Color flow images of the left kidney are unremarkable. The left renal cortex measures 1.5 cm in width within the lower pole on a sagittal image. No left renal mass or hydronephrosis is seen. The urinary bladder is mildly distended and appears anechoic. Bilateral ureteral jets are seen with color flow imaging. No free fluid is seen within the cul-de-sac. Impression: 1. Unremarkable bilateral renal ultrasound.
[2017-08-25] MEDS: D5W/0.45NS W/ 20mEq KCl 1000 ML 1,000 ML IV SCH (00:10)
[2017-08-25 05:52] LABS: BASOPHIL % 0.2 % (0.0-0.4); Basophil (Absolute #) 0.02 (0-0.4); Eosinophil % 3.4 % (0.00-5.0); Granulocyte Absolute (ANC) 4.76 (1.4-6.9); Granulocytes % 54.2 % (36.0-66.0); Hematocrit 41.4 % (35-47); Hemoglobin 13.9 gm/dl (12.0-16.0); Lymphocyte (Absolute #) 2.85 (1.0-4.6); Lymphocytes % 32.5 % (24.0-44.0); Mean Cell Volume 84.7 fl (78-100); Mean Corpuscular Hemoglobin 28.4 pg (26-32); Mean Corpuscular Hgb Concent. 33.6 g/dl (32-36); Mean Platelet Volume 10.5 fl (6-9.5); Monocyte (Absolute #) 0.85 (0.0-1.3); Monocytes % 9.7 % (0.0-12.0); Platelet Count 288 K/mm3 (150-450); Red Blood Count 4.89 M/mm3 (4.1-5.4); Red Cell Distribution Width 13.5 % (11.5-14.0); White Blood Count 8.8 K/mm3 (4.0-10.5)
[2017-08-25 06:14] LABS: ALBUMIN 3.6 g/dL (3.5-5.0); ALKALINE PHOSPHATASE 58 U/L (38-126); ANION GAP 12.8 MEQ/L (5-15); BLOOD UREA NITROGEN 9 mg/dL (7-17); CHLORIDE 103 mmol/L (98-107); Calcium 8.7 mg/dL (8.4-10.2); Carbon Dioxide 28 mmol/L (22-30); Creatinine 1 0.61 mg/dL (0.52-1.04); Glucose 117 mg/dL (74-106); Potassium 4.1 mmol/L (3.5-5.1); SGOT/AST 21 U/L (14-36); SGPT/ALT 74 U/L (0-35); SODIUM 140 mmol/L (137-145); Total Protein 6.1 g/dL (6.3-8.2)
--- NOTE | 2017-08-25 08:32 | PCM.DCORD ---
- Discharge Discharge Date: 08/25/17 Condition: Good Prescriptions: Continue Levothyroxine Sodium 50 Mcg [Synthroid 50 Mcg] 50 mcg PO DAILY Omeprazole 40 mg PO BID Duloxetine HCl 20 mg PO DAILY Diltiazem HCl [Cardizem LA] 120 mg PO BID Alprazolam 1 mg [Xanax 1 mg] 1 mg PO BIDPRN PRN PRN Reason: Anxiety Duloxetine HCl [Cymbalta] 60 mg PO DAILY Changed Promethazine HCl 25 mg [Phenergan 25 mg] 25 mg PO QIDPRN PRN #28 tablet PRN Reason: nausea,vomiting, or abd. pain Follow up with: DUKE MOLINA [Primary Care Provider] - 1 Week
--- NOTE | 2017-08-25 08:50 | SSS ---
DISCHARGE DIAGNOSES: 1) INTRACTABLE VOMITING. 2) DEHYDRATION. 3) URINARY TRACT INFECTION. HISTORY: The patient is a 31 year-old white female who reports she has been having problems with abdominal pain, nausea and vomiting off and on over the past several months dating back to approximately March. She reports she has lost about 50 pounds over the past six months. The patient has been seen by Dr. Tello a GI specialist who has done multiple examinations. She reports she did have esophagus stretched but was not having swallowing difficulties at that time. Apparently the diagnosis was unclear. She did rule out for Crohn's and other inflammatory bowel processes at that time. The patient reports that usually her vomiting issues would last a day and then they would resolve. She has been having these off and on but this last time it has lasted for several days resulting in several visits to the local emergency room of [facility] and our facility prompting the admission. PAST MEDICAL/SURGICAL HISTORY: Significant for previous cholecystectomy. She has had upper and lower endoscopy procedure performed. She has had childbirth. She does have some anxiety issues. MEDICATIONS: Her home medications presently include Nexium 20 mg a day, Synthroid 50 mcg daily, Alprazolam 1 mg every 8 hours PRN anxiety, diltiazem 120 mg a day, duloxetine 20 mg daily, omeprazole also at 40 mg b.i.d. ALLERGIES: IBUPROFEN, PENICILLIN, SULFA MEDICATIONS, TRIMETHOPRIM. PHYSICAL EXAMINATION: Revealed a well-nourished, well-developed 31 year-old white female in no obvious distress. She is alert and oriented x3. Her vital signs on admission showed temperature 97.6F, pulse 92, respiratory rate 18, blood pressure 123/94. O2 saturation 95% on room air. HEENT: Normocephalic, atraumatic. Pupils equal round reactive to light. Extraocular movements intact. Oropharynx is pink and moist. NECK: Supple without lymphadenopathy, thyromegaly or JVD. CHEST: Clear to auscultation with good air movement bilaterally. HEART: Regular rate and rhythm without murmurs, rubs or gallops. ABDOMEN: Soft. No palpable masses are felt. EXTREMITIES: Without clubbing, cyanosis or edema. NEUROLOGIC: The patient is alert and oriented x3 with no focal deficits. LAB DATA AND TESTS: Initially showed a white blood cell count elevated at 13,800. On the emergency room visits she did have elevations of her white blood cell count up to 17,000. This has actually been decreasing over the past few visits to the point where she is at 13,800 on her admission to the emergency room here. Her hemoglobin is 17.2, PLT count 380,000. There is what appears to be a bit of a left shift with 81.6% granulocytes. HCG was negative. Her metabolic panel showed a sugar of 119 nonfasting, BUN 14, creatinine 0.72. Electrolytes were normal. Total protein was 8.6 which is somewhat elevated. Bilirubin 1.2. AST 64 and ALT 132. Amylase and lipase were normal. UA did show 5-10 white blood cells per high power field. It was negative for nitrite. It did show ketones. Urine drug screen was positive for benzodiazepine and THC. HOSPITAL COURSE: The patient was admitted to the medicine restrepo with IV fluid hydration. She was placed empirically on antibiotics for possible urinary tract infection although the cultures had previously been negative with only what appeared to be a skin contaminant. The patient did tell me that she had been having problems with constipation and has not had a bowel movement in several days. She was given MiraLAX after which she did have a bowel movement and feeling better on the morning of 08/25/2017 after fluid hydration and evacuation of her bowels. We did discuss with the patient her THC usage and there is concern for possible role in her GI disturbance. The patient did have her potassium drop to 2.9 on 08/24/2017 but by 08/25/2017 was back to the normal range again. Her blood and urine cultures are thus far negative. She was feeling much better by the morning of 08/25/2017 and had been able to eat and keep down food overnight since hospital admission. She is therefore felt to be ready for discharge home on the morning of 08/25/2017. She reports that she will be contacting her GI specialist, Dr. Tello, upon release from the hospital. She was given Phenergan tablets for use for recurrent nausea. She has an appointment to see me in the office in one week.
[2017-08-25] MEDS ORDERED: Phenergan 25 MG INJ IM ONE (09:48)
[2017-08-25] MEDS ORDERED: Phenergan 25 MG INJ IM PRN (11:08)
[2017-08-25 11:32] VITALS: BP 110/69; PULSE 75; O2SAT 98
== END 2017-08-25 11:37 | disposition home or self-care (01) ==
LOC: ED 12:47 → MED SURG 15:10
PROVIDERS: ADMIT Family Medicine; ATTEND Family Medicine
DX: R11.10 Vomiting, unspecified (principal); E86.0 Dehydration; N39.0 Urinary tract infection, site not specified; F41.9 Anxiety disorder, unspecified; Z79.899 Other long term (current) drug therapy
CPT/HCPCS: 36415; 76705; 76770; 80053; 80307; 81000; 81002; 82150; 82248; 83690; 84132; 84703; 85025; 87040; 87086; 96360; 96374; 99285; G0378; J1885; J1956; J2405; J2550; J3480; A9270-GY

== ENCOUNTER 2019-09-24 05:58 | Day surgery (SDC) | payer OTHER ==
[2019-09-24] MEDS ORDERED: Lactated Ringers 1,000 ML IV SCH (06:30)
[2019-09-24] MEDS ORDERED: DIPRIVAN 200 MG/20 ML IV ONE (07:34)
[2019-09-24] MEDS ORDERED: Ketamine HCl 50 MG/ML ONE (07:35)
[2019-09-24 08:40] VITALS: O2SAT 96
[2019-09-24 08:45] VITALS: BP 122/74; PULSE 82
--- NOTE | 2019-09-24 14:05 | OP ---
SURGERY DATE/TIME: 09/24/2019 0733 PREOPERATIVE DIAGNOSIS: Abdominal pain and rectal bleeding. POSTOPERATIVE DIAGNOSIS: Normal colon. PROCEDURE: Colonoscopy. SURGEON: Dr. Alegre. ANESTHESIA: MAC. Medications given by anesthesia department. HISTORY: The patient is a 33 year old white female who presents now for colonoscopic evaluation. The patient reports she previously had a colonoscopy years ago that was normal but she has been complaining of abdominal pain and recently had some bleeding as well. The patient was felt the need to have endoscopic evaluation to evaluate for the possibility of colitis. The patient was described the risks of the procedure including the risk of perforation, phlebitis, untoward reaction to medication, bleeding and missed lesions. The patient verbalized her understanding and desired to have the procedure performed. DESCRIPTION OF PROCEDURE: The patient was given the medications by the anesthesia department. She had continuous pulse oximetry, ECG monitoring, intermittent blood pressure monitoring and tidal CO2 monitoring during the examination. She was placed in the left lateral decubitus position. A digital rectal examination was performed and revealed normal anal sphincter tone and no masses. The flexible Olympus pediatric colonoscope was used to intubate the rectum. A view of the colon was developed sequentially to the cecum including a short distance in the terminal ileum. Upon insertion and withdrawal, including a retroflex view in the rectum, no mucosal lesions were encountered. The scope was removed from the patient who tolerated the procedure well and was sent back to OP recovery in good condition. The prep was noted to be good.
== END 2019-09-24 08:50 | disposition home or self-care (01) ==
LOC: SDC 05:58
PROVIDERS: ATTEND Family Medicine
DX: R10.9 Unspecified abdominal pain (principal); K62.5 Hemorrhage of anus and rectum
CPT/HCPCS: 84703; J2704

== ENCOUNTER 2020-11-15 08:34 | Emergency (ER) | payer OTHER ==
--- NOTE | 2020-11-15 08:50 | ERPHSYRPT ---
- History of Present Illness Time Seen by Provider: 11/15/20 08:50 Historian: patient Exam Limitations: no limitations Patient Subjective Stated Complaint: pt here for vomiting since lat sat. [facility] and was seen againt there yesterday for same thing, denies any other co's. Triage Nursing Assessment: pt alert, vomitng, resp easy ,skin w/d/p. abd soft, no edema noted Physician History: This is a 34-year-old white female who has had intermittent vomiting over the last several days. Patient does have a history of smoking marijuana often. However, she tells me that she last smoked marijuana 10 days ago. Patient states she has had a cholecystectomy in the past but no other abdominal surgeries. Patient also said that she has had this kind of episode 3 years ago. She underwent a work-up but the work-up did not yield a diagnosis. Patient denies chest pain. She denies shortness of breath. She has not had any diarrhea. She has no significant abdominal pain. Patient was admitted into [facility] within the last week for same symptoms. She also was seen yesterday at [facility] because of recurrent symptoms after discharge to home. Patient was discharged to home with prescription for Zofran. It is not helping her symptoms. Timing/Duration: intermittent, other (Persistent) Abdominal Pain Onset Location: generalized abdomen (Mild) Pain Radiation: no radiation Severity of Pain-Max: mild Severity of Pain-Current: mild Modifying Factors: Improves With: vomiting Associated Symptoms: vomiting Previous symptoms: same symptoms as today, recently seen, recent hospitalizat ion, recently treated Allergies/Adverse Reactions: aspirin Allergy (Severe, Verified 11/15/20 08:49) throat swelling ibuprofen [From Motrin] Allergy (Severe, Verified 11/15/20 08:49) throat swelling Penicillins Allergy (Mild, Verified 11/15/20 08:49) Rash sulfamethoxazole [From Bactrim] Allergy (Mild, Verified 11/15/20 08:49) Rash trimethoprim [From Bactrim] Allergy (Mild, Verified 11/15/20 08:49) Rash Home Medications: Levothyroxine Sodium 50 Mcg [Synthroid 50 Mcg] 50 mcg PO DAILY 10/16/14 [History] Diltiazem HCl [Cardizem LA] 120 mg PO BID 08/20/17 [History] Duloxetine HCl [Cymbalta] 60 mg PO DAILY 08/23/17 [History] Loratadine 10 mg [Claritin 10 mg] 10 mg PO DAILY 09/20/19 [History] Metoprolol Tartrate 25 mg [Lopressor 25MG Tab] 25 mg PO BID 03/17/20 [History] Hx Tetanus, Diphtheria Vaccination/Date Given: No Hx Influenza Vaccination/Date Given: No Hx Pneumococcal Vaccination/Date Given: No Immunizations Up to Date: Yes Travel Risk - International Travel Have you traveled outside of the country in past 3 weeks: No - Coronavirus Screening Are you exhibiting any of the following symptoms?: Yes Symptoms: Vomiting/Diarrhea Close contact with a COVID-19 positive Pt in past 14-21 Days: No - Vaccine Status Have you recieved a Covid-19 vaccination: No - Review of Systems Constitutional: Weakness Eyes: No Symptoms Ears, Nose, & Throat: No Symptoms Respiratory: No Symptoms Cardiac: No Symptoms Abdominal/Gastrointestinal: Vomiting Genitourinary Symptoms: No Symptoms Musculoskeletal: No Symptoms Skin: No Symptoms Neurological: No Symptoms Psychological: No Symptoms Endocrine: No Symptoms Hematologic/Lymphatic: No Symptoms Immunological/Allergic: No Symptoms All Other Systems: Reviewed and Negative - Past Medical History Pertinent Past Medical History: Yes Neurological History: No Pertinent History ENT History: No Pertinent History Cardiac History: Arrhythmia, Other Respiratory History: No Pertinent History Endocrine Medical History: Hypothyroidism Musculoskeletal History: No Pertinent History GI Medical History: Colitis, GERD History: No Pertinent History Psycho-Social History: Depression Female Reproductive Disorders: Other Other Medical History: Palpitations- Tachycardia controlled with meds, bacterial vaginosis, ovarian cysts, HYSTOPLASMOSIS, ESOPHAGEAL CANER, sleep apnea - Past Surgical History Past Surgical History: Yes Neuro Surgical History: No Pertinent History Cardiac: No Pertinent History Respiratory: No Pertinent History Gastrointestinal: Cholecystectomy Genitourinary: No Pertinent History Musculoskeletal: No Pertinent History Female Surgical History: No Pertinent History Other Surgical History: BIOPSY LYMPH NODES, LUNG BIOPSY - Social History Smoking Status: Current every day smoker Exposure to second hand smoke: Yes Drug Use: marijuana Patient Lives Alone: No - Female History Hx Last Menstrual Period: 2 weeks ago Hx Now: No - Nursing Vital Signs Nursing Vital Signs: Initial Vital Signs Temperature 97.5 F 11/15/20 08:50 Pulse Rate 102 H 11/15/20 08:50 Respiratory Rate 18 11/15/20 08:50 Blood Pressure 126/92 11/15/20 08:50 O2 Sat by Pulse Oximetry 98 11/15/20 08:50 Pain Scale Pain Intensity 0 - Physical Exam General Appearance: no apparent distress, alert, anxiety Eye Exam: PERRL/EOMI Ears, Nose, Throat Exam: normal ENT inspection, moist mucous membranes Neck Exam: normal inspection, non-tender, supple, full range of motion Respiratory Exam: normal breath sounds, lungs clear, airway intact, No chest tenderness, No respiratory distress Cardiovascular Exam: regular rate/rhythm, normal heart sounds, normal peripheral pulses Gastrointestinal/Abdomen Exam: soft, normal bowel sounds, tenderness (Mild dif fuse), No guarding, No rebound Pelvic Exam: not done Rectal Exam: not done Back Exam: normal inspection, normal range of motion, No CVA tenderness, No vertebral tenderness Extremity Exam: normal inspection, normal range of motion, pelvis stable Neurologic Exam: alert, oriented x 3, cooperative, matrix repairer II-XII nml as tested, normal mood/affect, nml cerebellar function, nml station & gait, sensation nml Skin Exam: normal color, warm, dry Lymphatic Exam: No adenopathy SpO2 Interpretation: normal O2 Delivery: Room Air - Course Nursing assessment & vital signs reviewed: Yes Ordered Tests: Active Orders 24 hr Category Date Time Status Clean Catch Urine Specimen STAT Care 11/15/20 09:03 Active EKG-ER Only STAT Care 11/15/20 09:31 Active IV Insertion STAT Care 11/15/20 08:58 Active ABDOMEN AND PELVIS W/0 CONTRAS [CT] Stat Exams 11/15/20 08:58 Ordered AMYLASE Stat Lab 11/15/20 09:00 Completed CBC W DIFF Stat Lab 11/15/20 09:00 Completed CMP Stat Lab 11/15/20 09:00 Completed LIPASE Stat Lab 11/15/20 09:00 Completed Lactic Acid Stat Lab 11/15/20 09:00 Completed Lactic Acid Stat Lab 11/15/20 11:27 Received MAGNESIUM Stat Lab 11/15/20 09:00 Completed Manual Differential NC Stat Lab 11/15/20 09:00 Completed T4 (Thyroxine) Stat Lab 11/15/20 09:00 Completed TROPONIN Q3H Lab 11/15/20 09:45 Completed TROPONIN Q3H Lab 11/15/20 12:45 Ordered TROPONIN Q3H Lab 11/15/20 15:45 Ordered TROPONIN Q3H Lab 11/15/20 18:45 Ordered TROPONIN Q3H Lab 11/15/20 21:45 Ordered TSH, 3RD Generation Stat Lab 11/15/20 09:00 Completed UA W/RFX UR CULTURE Stat Lab 11/15/20 11:18 Completed Urine Triage Profile Stat Lab 11/15/20 11:00 Completed Medication Summary Discontinued Medications Generic Name Dose Route Start Last Admin Trade Name Anam PRN Reason Stop Dose Admin Sodium Chloride 1,000 mls @ 999 mls/hr 11/15/20 08:58 11/15/20 10:53 Sodium Chloride 0.9% 1000 Ml IV 11/15/20 09:58 Infused .Q1H1M STA Infusion Sodium Chloride Confirm 11/15/20 09:11 Sodium Chloride 0.9% 1000 Ml Administered 11/15/20 09:12 Dose 1,000 mls @ ud .ROUTE .STK-MED ONE Sodium Chloride 1,000 mls @ 999 mls/hr 11/15/20 10:02 11/15/20 10:27 Sodium Chloride 0.9% 1000 Ml IV 11/15/20 11:02 999 mls/hr .Q1H1M STA Administration Sodium Chloride Confirm 11/15/20 10:24 Sodium Chloride 0.9% 1000 Ml Administered 11/15/20 10:25 Dose 1,000 mls @ ud .ROUTE .STK-MED ONE Potassium Chloride 10 meq 11/15/20 11:12 11/15/20 11:17 Klor Con 10 Meq PO 11/15/20 11:13 10 meq STAT ONE Administration Potassium Chloride Confirm 11/15/20 11:17 Klor Con 10 Meq Administered 11/15/20 11:18 Dose 10 meq PO .STK-MED ONE Prochlorperazine Edisylate 10 mg 11/15/20 08:58 11/15/20 09:15 Compazine 10 Mg/2 Ml IV 11/15/20 08:59 10 mg STAT ONE Administration Prochlorperazine Edisylate Confirm 11/15/20 09:10 Compazine 10 Mg/2 Ml Administered 11/15/20 09:11 Dose 10 mg .ROUTE .STK-MED ONE Lab/Rad Data: Laboratory Result Diagrams 11/15/20 09:00 11/15/20 09:00 Laboratory Results 11/15/20 11/15/20 11/15/20 Range/Units 11:18 11:00 09:45 WBC (4.0-10.5) K/mm3 RBC (4.1-5.4) M/mm3 Hgb (12.0-16.0) gm/dl Hct (35-47) % MCV (78-100) fl MCH (26-32) pg MCHC (32-36) g/dl RDW (11.5-14.0) % Plt Count (150-450) K/mm3 MPV (7.5-11.0) fl Segmented Neutrophils (36.0-66.0) % Lymphocytes (Manual) (24-44) % Hypersegmented Polys Platelet Estimate (NORMAL) RBC Morphology Sodium (137-145) mmol/L Potassium (3.5-5.1) mmol/L Chloride (98-107) mmol/L Carbon Dioxide (22-30) mmol/L Anion Gap (5-15) MEQ/L BUN (7-17) mg/dL Creatinine (0.52-1.04) mg/dL Estimated GFR ML/MIN Glucose (74-106) mg/dL Lactic Acid (0.4-2.0) Calcium (8.4-10.2) mg/dL Magnesium (1.6-2.3) mg/dL Total Bilirubin (0.2-1.3) mg/dL AST (14-36) U/L ALT (0-35) U/L Alkaline Phosphatase (38-126) U/L Troponin I < 0.012 (0.000-0.034) ng/mL Serum Total Protein (6.3-8.2) g/dL Albumin (3.5-5.0) g/dL Amylase (30-110) U/L Lipase (23-300) U/L Thyroxine (T4) (5.53-10.96) ug/dL TSH 3rd Generation (0.47-4.68) mIU/L Urine Color STRAW (YELLOW) Urine Appearance CLEAR (CLEAR) Urine pH 8.0 (5-6) Ur Specific Benge 1.002 (1.005-1.025) Urine Protein NEGATIVE (Negative) Urine Ketones TRACE (NEGATIVE) Urine Blood NEGATIVE (0-5) Matthew/ul Urine Nitrite NEGATIVE (NEGATIVE) Urine Bilirubin NEGATIVE (NEGATIVE) Urine Urobilinogen NEGATIVE (0-1) mg/dL Ur Leukocyte Esterase NEGATIVE (NEGATIVE) Urine WBC (Auto) 3-5 (0-5) /HPF Urine RBC (Auto) NONE (0-2) /HPF U Epithel Cells (Auto) RARE (FEW) /HPF Urine Bacteria (Auto) FEW (NEGATIVE) /HPF Urine Culture Reflexed NO (NO) Urine Glucose NEGATIVE (NEGATIVE) mg/dL Urine Opiates Level NEGATIVE (NEGATIVE) Ur Methadone NEGATIVE (NEGATIVE) Urine Barbiturates NEGATIVE (NEGATIVE) Ur Phencyclidine (PCP) NEGATIVE (NEGATIVE) Urine Amphetamine NEGATIVE (NEGATIVE) U Benzodiazepine Level POSITIVE (NEGATIVE) Urine Cocaine NEGATIVE (NEGATIVE) Urine Marijuana (THC) POSITIVE (NEGATIVE) 11/15/20 11/15/20 11/15/20 Range/Units 09:00 09:00 09:00 WBC 15.5 H (4.0-10.5) K/mm3 RBC 5.02 (4.1-5.4) M/mm3 Hgb 14.3 (12.0-16.0) gm/dl Hct 43.1 (35-47) % MCV 85.9 (78-100) fl MCH 28.5 (26-32) pg MCHC 33.2 (32-36) g/dl RDW 13.7 (11.5-14.0) % Plt Count 366 (150-450) K/mm3 MPV 11.4 H (7.5-11.0) fl Segmented Neutrophils 89 H (36.0-66.0) % Lymphocytes (Manual) 11 L (24-44) % Hypersegmented Polys 1+ Platelet Estimate NORMAL (NORMAL) RBC Morphology NORMAL Sodium 136 L (137-145) mmol/L Potassium 3.3 L (3.5-5.1) mmol/L Chloride 101 (98-107) mmol/L Carbon Dioxide 26 (22-30) mmol/L Anion Gap 11.7 (5-15) MEQ/L BUN 5 L (7-17) mg/dL Creatinine 0.61 (0.52-1.04) mg/dL Estimated GFR > 60.0 ML/MIN Glucose 110 H (74-106) mg/dL Lactic Acid 1.9 (0.4-2.0) Calcium 9.0 (8.4-10.2) mg/dL Magnesium 2.0 (1.6-2.3) mg/dL Total Bilirubin 0.70 (0.2-1.3) mg/dL AST 20 (14-36) U/L ALT 37 H (0-35) U/L Alkaline Phosphatase 76 (38-126) U/L Troponin I (0.000-0.034) ng/mL Serum Total Protein 7.0 (6.3-8.2) g/dL Albumin 4.1 (3.5-5.0) g/dL Amylase 59 (30-110) U/L Lipase 54 (23-300) U/L Thyroxine (T4) 17.0 H (5.53-10.96) ug/dL TSH 3rd Generation 1.050 (0.47-4.68) mIU/L Urine Color (YELLOW) Urine Appearance (CLEAR) Urine pH (5-6) Ur Specific Benge (1.005-1.025) Urine Protein (Negative) Urine Ketones (NEGATIVE) Urine Blood (0-5) Matthew/ul Urine Nitrite (NEGATIVE) Urine Bilirubin (NEGATIVE) Urine Urobilinogen (0-1) mg/dL Ur Leukocyte Esterase (NEGATIVE) Urine WBC (Auto) (0-5) /HPF Urine RBC (Auto) (0-2) /HPF U Epithel Cells (Auto) (FEW) /HPF Urine Bacteria (Auto) (NEGATIVE) /HPF Urine Culture Reflexed (NO) Urine Glucose (NEGATIVE) mg/dL Urine Opiates Level (NEGATIVE) Ur Methadone (NEGATIVE) Urine Barbiturates (NEGATIVE) Ur Phencyclidine (PCP) (NEGATIVE) Urine Amphetamine (NEGATIVE) U Benzodiazepine Level (NEGATIVE) Urine Cocaine (NEGATIVE) Urine Marijuana (THC) (NEGATIVE) - Progress Progress: improved Progress Note: 11/15/20 09:30 Patient is refusing CAT scan of the abdomen and pelvis. She is refusing this CAT scan because within the last several days she had a CAT scan of the abdomen pelvis performed at [facility]. We are awaiting those faxed results 11/15/20 09:30 - Departure Departure Disposition: Home Clinical Impression: Cyclic vomiting syndrome, Dehydration, mild, Hyperthyroidism Condition: Stable Critical Care Time: No Referrals: DUKE MOLINA [Primary Care Provider] - Additional Instructions: Drink plenty of clear liquids. Stop the use of marijuana. Hold your thyroid medication. Follow-up with your primary prescribing physician on 11/17/2020, to discuss your thyroid issue. Follow-up with your gastroenterol ogist to discuss this cyclic vomiting syndrome. Prescriptions: Promethazine HCl 25 mg [Phenergan 25 mg] 25 mg PO Q8H PRN PRN #10 tablet PRN Reason: Nausea/Vomiting
[2020-11-15] MEDS ORDERED: Sodium Chloride 0.9% 1000 ML 1,000 ML IV STA ×2 (08:58→10:02)
[2020-11-15] MEDS ORDERED: Compazine 10 MG/2 ML IV ONE (08:58)
[2020-11-15] MEDS ORDERED: Compazine 10 MG/2 ML ONE (09:10)
[2020-11-15] MEDS ORDERED: Sodium Chloride 0.9% 1000 ML 1,000 ML ONE ×2 (09:11→10:24)
[2020-11-15 09:22] LABS: Hematocrit 43.1 % (35-47); Hemoglobin 14.3 gm/dl (12.0-16.0); Mean Cell Volume 85.9 fl (78-100); Mean Corpuscular Hemoglobin 28.5 pg (26-32); Mean Corpuscular Hgb Concent. 33.2 g/dl (32-36); Mean Platelet Volume 11.4 fl (7.5-11.0); Platelet Count 366 K/mm3 (150-450); Red Blood Count 5.02 M/mm3 (4.1-5.4); Red Cell Distribution Width 13.7 % (11.5-14.0); White Blood Count 15.5 K/mm3 (4.0-10.5)
[2020-11-15 09:58] LABS: Lymphocytes 11 % (24-44); Neutrophils 89 % (36.0-66.0); Platelet Estimate NORMAL (NORMAL); Total Cells Counted 100
[2020-11-15 09:59] LABS: Hypersegmented Polys 1+
[2020-11-15 10:25] LABS: ALBUMIN 4.1 g/dL (3.5-5.0); ALKALINE PHOSPHATASE 76 U/L (38-126); AMYLASE 59 U/L (30-110); ANION GAP 11.7 MEQ/L (5-15); BLOOD UREA NITROGEN 5 mg/dL (7-17); CHLORIDE 101 mmol/L (98-107); Carbon Dioxide 26 mmol/L (22-30); Creatinine 1 0.61 mg/dL (0.52-1.04); EST GLOMERULAR FILTRATION RATE > 60.0 ML/MIN; Glucose 110 mg/dL (74-106); LIPASE 54 U/L (23-300); Potassium 3.3 mmol/L (3.5-5.1); SGOT/AST 20 U/L (14-36); SGPT/ALT 37 U/L (0-35); SODIUM 136 mmol/L (137-145)
[2020-11-15] MEDS ORDERED: Klor Con 10 MEQ PO ONE ×2 (11:12→11:17)
[2020-11-15 11:19] VITALS: BP 116/83
[2020-11-15 11:22] LABS: Appearance CLEAR (CLEAR); Bacteria FEW /HPF (NEGATIVE); Bilirubin NEGATIVE (NEGATIVE); Blood NEGATIVE Ery/ul (0-5); Epithelial Cells RARE /HPF (FEW); Glucose NEGATIVE (NEGATIVE); Ketones TRACE (NEGATIVE); Leukocyte Esterase NEGATIVE (NEGATIVE); Nitrite NEGATIVE (NEGATIVE); Protein,Urine Dip NEGATIVE (Negative); Specific Gravity 1.002 (1.005-1.025); Urobilinogen NEGATIVE mg/dL (0-1)
[2020-11-15 11:33] LABS: Amphetamine,Urine NEGATIVE (NEGATIVE); Barbiturate,Urine NEGATIVE (NEGATIVE); Benzodiazepine,Urine POSITIVE (NEGATIVE); Cocaine,Urine NEGATIVE (NEGATIVE); Methadone,Urine NEGATIVE (NEGATIVE); Opiate,Urine NEGATIVE (NEGATIVE); PCP,Urine NEGATIVE (NEGATIVE); THC,Urine POSITIVE (NEGATIVE)
[2020-11-15 12:16] VITALS: PULSE 96; O2SAT 98
== END 2020-11-15 12:23 | disposition home or self-care (01) ==
LOC: ED 08:34
DX: E86.0 Dehydration (principal); E05.90 Thyrotoxicosis, unspecified without thyrotoxic crisis or storm
CPT/HCPCS: 36000; 36415; 80053; 80307; 81001; 82150; 83605; 83690; 83735; 84436; 84443; 84484; 85025; 93005; 96360; 96361; 96374; 99285; A9270-GY

== ENCOUNTER 2021-08-24 13:02 | Emergency (ER) | payer OTHER ==
[2021-08-24] MEDS ORDERED: Zofran 4 MG/2 ML VIAL IV ONE (13:30)
[2021-08-24] MEDS ORDERED: Sodium Chloride 0.9% 1000 ML 1,000 ML IV SCH (13:30)
--- NOTE | 2021-08-24 13:30 | ERPHSYRPT ---
- History of Present Illness Time Seen by Provider: 08/24/21 13:27 Source: patient Exam Limitations: no limitations Patient Subjective Stated Complaint: PT HERE FOR LOWER PELIVC PAIN TODAY WITH NAUSEA. SHE STATES SHE HAS A LOT OF GI PROBLEMS, Triage Nursing Assessment: PT ALERT, RESP EASY,FACE MASK IN PLACE, ABD SOFT, SKIN W/D/P. NO EDEMA NOTED, DENIES ANY VAGINAL DC Physician History: Patient is a 35-year-old female presents to our ED with suprapubic pain. Pain associated with dark urine and nausea and vomiting x3 days. Patient states she has lost approximately 8 pounds. Patient has had similar pain in the past and has been extensively worked up withspecific diagnosis. No fever. No vaginal discharge. Patient denies concern for STI. Symptoms are constant. Symptoms are moderate in intensity. Palpation to the suprapubic region reproduces symptoms. No trauma. No fever. No back pain. No chest pain or shortness of breath. Patient has history of heart palpitations and hypothyroidism. Patient states is otherwise healthy. She voices no other complaints or concerns at this time. Patient declined pain medication. Portions of this note were created with voice recognition technology. There may be grammatical, spelling, punctuation or sound alike errors Timing/Duration: day(s) (3 days) Severity: moderate Modifying Factors: Improves With: nothing Associated Symptoms: No vomiting, No shortness of breath, No cough, No chest pain, No fever, No headaches, No syncope, No seizure, No weakness Allergies/Adverse Reactions: aspirin Allergy (Severe, Verified 08/24/21 13:07) throat swelling ibuprofen [From Motrin] Allergy (Severe, Verified 08/24/21 13:07) throat swelling Penicillins Allergy (Mild, Verified 08/24/21 13:07) Rash sulfamethoxazole [From Bactrim] Allergy (Mild, Verified 08/24/21 13:07) Rash trimethoprim [From Bactrim] Allergy (Mild, Verified 08/24/21 13:07) Rash Home Medications: Levothyroxine Sodium 50 Mcg [Synthroid 50 Mcg] 50 mcg PO DAILY 10/16/14 [History] Diltiazem HCl [Cardizem LA] 120 mg PO BID 08/20/17 [History] Duloxetine HCl [Cymbalta] 60 mg PO DAILY 08/23/17 [History] Loratadine 10 mg [Claritin 10 mg] 10 mg PO DAILY 09/20/19 [History] Metoprolol Tartrate 25 mg [Lopressor 25MG Tab] 25 mg PO BID 03/17/20 [History] Hx Tetanus, Diphtheria Vaccination/Date Given: No Hx Influenza Vaccination/Date Given: No Hx Pneumococcal Vaccination/Date Given: No Immunizations Up to Date: Yes Travel Risk - International Travel Have you traveled outside of the country in past 3 weeks: No - Coronavirus Screening Are you exhibiting any of the following symptoms?: No Close contact with a COVID-19 positive Pt in past 14-21 Days: No - Vaccine Status Have you recieved a Covid-19 vaccination: No - Review of Systems Constitutional: No Symptoms, No Fever, No Chills Eyes: No Symptoms Ears, Nose, & Throat: No Symptoms Respiratory: No Symptoms, No Cough, No Dyspnea Cardiac: No Symptoms, No Chest Pain, No Edema, No Syncope Abdominal/Gastrointestinal: No Symptoms, No Abdominal Pain, No Nausea, No Vomiting, No Diarrhea Genitourinary Symptoms: No Symptoms, No Dysuria Musculoskeletal: No Symptoms, No Back Pain, No Neck Pain Skin: No Symptoms, No Rash Neurological: No Symptoms, No Dizziness, No Focal Weakness, No Sensory Changes Psychological: No Symptoms Endocrine: No Symptoms Hematologic/Lymphatic: No Symptoms Immunological/Allergic: No Symptoms All Other Systems: Reviewed and Negative - Past Medical History Pertinent Past Medical History: Yes Neurological History: No Pertinent History ENT History: No Pertinent History Cardiac History: Arrhythmia, Other Respiratory History: No Pertinent History Endocrine Medical History: Hypothyroidism Musculoskeletal History: No Pertinent History GI Medical History: Colitis, GERD, Other History: No Pertinent History Psycho-Social History: Depression Female Reproductive Disorders: Other Other Medical History: Palpitations- Tachycardia controlled with meds, bacterial vaginosis, ovarian cysts, HYSTOPLASMOSIS, ESOPHAGEAL CANCER, sleep apnea,CELIAC DISEASE - Past Surgical History Past Surgical History: Yes Neuro Surgical History: No Pertinent History Cardiac: No Pertinent History Respiratory: No Pertinent History Gastrointestinal: Cholecystectomy Genitourinary: No Pertinent History Musculoskeletal: No Pertinent History Female Surgical History: No Pertinent History Other Surgical History: BIOPSY LYMPH NODES, LUNG BIOPSY - Social History Smoking Status: Current every day smoker Exposure to second hand smoke: Yes Drug Use: marijuana Patient Lives Alone: No - Female History Hx Last Menstrual Period: LAST WEEK Hx Now: No - Nursing Vital Signs Nursing Vital Signs: Initial Vital Signs Temperature 97.6 F 08/24/21 13:09 Pulse Rate 101 H 08/24/21 13:09 Respiratory Rate 18 08/24/21 13:09 O2 Sat by Pulse Oximetry 97 08/24/21 13:09 Pain Scale Pain Intensity 7 - Physical Exam General Appearance: no apparent distress, alert Eye Exam: PERRL/EOMI, eyes nml inspection Ears, Nose, Throat Exam: normal ENT inspection, TMs normal, pharynx normal, moist mucous membranes Neck Exam: normal inspection, non-tender, supple, full range of motion Respiratory Exam: normal breath sounds, lungs clear, airway intact, No respiratory distress Cardiovascular Exam: regular rate/rhythm, normal heart sounds, normal peripheral pulses Gastrointestinal/Abdomen Exam: soft, normal bowel sounds, tenderness (Mild suprapubic tenderness to palpation. Overlying soft tissue intact. No signs of trauma. No right lower quadrant pain.), No mass, No guarding Pelvic Exam: other (Suprapubic tenderness to palpation. Overlying soft tissue intact. No signs of trauma) Back Exam: normal inspection, normal range of motion, No CVA tenderness, No vertebral tenderness Extremity Exam: normal inspection, normal range of motion, pelvis stable Neurologic Exam: alert, oriented x 3, cooperative, normal mood/affect, nml cerebellar function, nml station & gait, sensation nml, No motor deficits Skin Exam: normal color, warm, dry, No rash Lymphatic Exam: No adenopathy SpO2 Interpretation: normal SpO2: 97 O2 Delivery: Room Air - Course Nursing assessment & vital signs reviewed: Yes - CT Exams Abdomen/Pelvis CT Interpretation: Tele-radiologist Report (Lung granuloma otherwise negative CT abdomen pelvis. Normal appendix) Ordered Tests: Active Orders 24 hr Category Date Time Status IV Insertion STAT Care 08/24/21 13:30 Active ABDOMEN AND PELVIS W/0 CONTRAS [CT] Stat Exams 08/24/21 13:31 Completed CBC W DIFF Stat Lab 08/24/21 13:30 Completed CMP Stat Lab 08/24/21 13:30 Completed CULTURE,URINE Stat Lab 08/24/21 13:55 Received HCG,QUALITATIVE URINE Stat Lab 08/24/21 13:54 Completed TROPONIN Q3H Lab 08/24/21 16:05 Completed TROPONIN Q3H Lab 08/25/21 01:30 Ordered UA W/RFX CULTURE Stat Lab 08/24/21 13:55 Completed Medication Summary Generic Name Dose Route Start Last Admin Trade Name Anam PRN Reason Stop Dose Admin Sodium Chloride 1,000 mls @ 100 mls/hr 08/24/21 13:30 08/24/21 13:38 Sodium Chloride 0.9% 1000 Ml IV 09/23/21 13:29 100 mls/hr .Q10H MIESHA Administration Discontinued Medications Generic Name Dose Route Start Last Admin Trade Name Anam PRN Reason Stop Dose Admin Hydrocodone Bitart/Acetaminophen 4 tab 08/24/21 17:08 08/24/21 17:19 Hydrocodone/Apap 5/325 Mg Tablet PO 08/24/21 17:09 4 tab SENT HOME W/ PATIENT ONE Administration Hydrocodone Bitart/Acetaminophen Confirm 08/24/21 17:19 Hydrocodone/Apap 5/325 Mg Tablet Administered 08/24/21 17:20 Dose 4 tab .ROUTE .STK-MED ONE Morphine Sulfate 4 mg 08/24/21 16:53 08/24/21 17:00 Morphine Sulfate 4 Mg/Ml Injection IV 08/24/21 16:54 4 mg STAT ONE Administration Morphine Sulfate Confirm 08/24/21 16:59 Morphine Sulfate 4 Mg/Ml Injection Administered 08/24/21 17:00 Dose 4 mg .ROUTE .STK-MED ONE Nitrofurantoin Macrocrystals 100 mg 08/24/21 16:53 08/24/21 17:00 Nitrofurantoin Macro 100 Mg Capsule PO 08/24/21 16:54 100 mg STAT ONE Administration Nitrofurantoin Macrocrystals Confirm 08/24/21 16:59 Nitrofurantoin Macro 100 Mg Capsule Administered 08/24/21 17:00 Dose 100 mg .ROUTE .STK-MED ONE Ondansetron HCl 4 mg 08/24/21 13:30 08/24/21 13:37 Ondansetron Hcl 4 Mg/2 Ml Vial IV 08/24/21 13:31 4 mg STAT ONE Administration Ondansetron HCl Confirm 08/24/21 13:35 Ondansetron Hcl 4 Mg/2 Ml Vial Administered 08/24/21 13:36 Dose 4 mg .ROUTE .STK-MED ONE Lab/Rad Data: Laboratory Result Diagrams 08/24/21 13:30 08/24/21 13:30 Laboratory Results 08/24/21 08/24/21 08/24/21 Range/Units 16:05 13:55 13:54 WBC (4.0-10.5) x10^3/uL RBC (4.1-5.4) x10^6/uL Hgb (12.0-16.0) g/dL Hct (35-47) % MCV (78-100) fL MCH (26-32) pg MCHC (32-36) g/dL RDW (11.5-14.0) % Plt Count (150-450) x10^3/uL MPV (7.5-11.0) fL Gran % (36.0-66.0) % Immature Gran % (Auto) (0.00-0.4) % Nucleat RBC Rel Count (0.00-0.1) % Eos # (Auto) (0-0.5) x10^3/uL Immature Gran # (Auto) (0.00-0.03) x10^3u/L Absolute Lymphs (auto) (1.0-4.6) x10^3/uL Absolute Monos (auto) (0.0-1.3) x10^3/uL Absolute Nucleated RBC (0.00-0.01) x10^3u/L Lymphocytes % (24.0-44.0) % Monocytes % (0.0-12.0) % Eosinophils % (0.00-5.0) % Basophils % (0.0-0.4) % Absolute Granulocytes (1.4-6.9) x10^3/uL Basophils # (0-0.4) x10^3/uL Sodium (137-145) mmol/L Potassium (3.5-5.1) mmol/L Chloride (98-107) mmol/L Carbon Dioxide (22-30) mmol/L Anion Gap (5-15) MEQ/L BUN (7-17) mg/dL Creatinine (0.52-1.04) mg/dL Estimated GFR ML/MIN Glucose (74-106) mg/dL Calcium (8.4-10.2) mg/dL Total Bilirubin (0.2-1.3) mg/dL AST (14-36) U/L ALT (0-35) U/L Alkaline Phosphatase (38-126) U/L Troponin I < 0.012 (0.000-0.034) ng/mL Serum Total Protein (6.3-8.2) g/dL Albumin (3.5-5.0) g/dL Urinalys Dipstick Clnc MAIN LAB Urine Color YOANA (YELLOW) Urine Appearance SLIGHTLY CLOUDY (CLEAR) Urine pH 6.0 (5-6) Ur Specific Bryant >=1.030 (1.005-1.025) POC Urine Protein Conf 100 (Negative) Urine Ketones TRACE (NEGATIVE) Urine Nitrite NEGATIVE (NEGATIVE) Urine Bilirubin SMALL (NEGATIVE) Urine Urobilinogen 0.2 (0-1) mg/dL Urine Leukocytes NEGATIVE (NEGATIVE) Urine WBC (Auto) 16-25 (0-5) /HPF Urine RBC (Auto) 11-15 (0-2) /HPF U Hyaline Cast (Auto) 26-50 (0-2) /LPF U Epithel Cells (Auto) FEW (FEW) /HPF Urine Bacteria (Auto) NONE (NEGATIVE) /HPF Urine RBC LARGE (0-5) Matthew/ul Urine Mucus (Auto) MANY (NEGATIVE) /HPF Ur Culture Indicated? YES Urine Glucose NEGATIVE (NEGATIVE) mg/dL Urine HCG, Qual NEGATIVE (Negative) 08/24/21 08/24/21 Range/Units 13:30 13:30 WBC 17.3 H (4.0-10.5) x10^3/uL RBC 5.28 (4.1-5.4) x10^6/uL Hgb 15.0 (12.0-16.0) g/dL Hct 45.8 (35-47) % MCV 86.7 (78-100) fL MCH 28.4 (26-32) pg MCHC 32.8 (32-36) g/dL RDW 13.4 (11.5-14.0) % Plt Count 401 (150-450) x10^3/uL MPV 10.8 (7.5-11.0) fL Gran % 82.4 H (36.0-66.0) % Immature Gran % (Auto) 0.5 H (0.00-0.4) % Nucleat RBC Rel Count 0.0 (0.00-0.1) % Eos # (Auto) 0.22 (0-0.5) x10^3/uL Immature Gran # (Auto) 0.09 H (0.00-0.03) x10^3u/L Absolute Lymphs (auto) 1.82 (1.0-4.6) x10^3/uL Absolute Monos (auto) 0.87 (0.0-1.3) x10^3/uL Absolute Nucleated RBC 0.00 (0.00-0.01) x10^3u/L Lymphocytes % 10.5 L (24.0-44.0) % Monocytes % 5.0 (0.0-12.0) % Eosinophils % 1.3 (0.00-5.0) % Basophils % 0.3 (0.0-0.4) % Absolute Granulocytes 14.22 H (1.4-6.9) x10^3/uL Basophils # 0.06 (0-0.4) x10^3/uL Sodium 139 (137-145) mmol/L Potassium 3.7 (3.5-5.1) mmol/L Chloride 102 (98-107) mmol/L Carbon Dioxide 28 (22-30) mmol/L Anion Gap 12.8 (5-15) MEQ/L BUN 13 (7-17) mg/dL Creatinine 0.93 (0.52-1.04) mg/dL Estimated GFR > 60.0 ML/MIN Glucose 107 H (74-106) mg/dL Calcium 9.6 (8.4-10.2) mg/dL Total Bilirubin 0.70 (0.2-1.3) mg/dL AST 40 H (14-36) U/L ALT 31 (0-35) U/L Alkaline Phosphatase 111 (38-126) U/L Troponin I (0.000-0.034) ng/mL Serum Total Protein 8.2 (6.3-8.2) g/dL Albumin 4.5 (3.5-5.0) g/dL Urinalys Dipstick Clnc Urine Color (YELLOW) Urine Appearance (CLEAR) Urine pH (5-6) Ur Specific Bryant (1.005-1.025) POC Urine Protein Conf (Negative) Urine Ketones (NEGATIVE) Urine Nitrite (NEGATIVE) Urine Bilirubin (NEGATIVE) Urine Urobilinogen (0-1) mg/dL Urine Leukocytes (NEGATIVE) Urine WBC (Auto) (0-5) /HPF Urine RBC (Auto) (0-2) /HPF U Hyaline Cast (Auto) (0-2) /LPF U Epithel Cells (Auto) (FEW) /HPF Urine Bacteria (Auto) (NEGATIVE) /HPF Urine RBC (0-5) Matthew/ul Urine Mucus (Auto) (NEGATIVE) /HPF Ur Culture Indicated? Urine Glucose (NEGATIVE) mg/dL Urine HCG, Qual (Negative) - Progress Progress: improved Progress Note: Case discussed with Dr. Alegre. We specifically discussed patient's leukocytosis. Patient does have a urinary tract infection which may be contributing to this high leukocytosis. No other sources of infection observed. CT abdomen pelvis was negative. Patient states she has been having urinary symptoms for some time. She did see an urgent care. They did a urinalysis and told her that she had microscopic hematuria but no obvious urinary tract infection. Nonetheless we discussed whether or not patient should be admitted for observation. Codey feels the patient should be treated for the urinary tract infection and discharged home. He states he will follow-up with her in the next 48 hours. Plan of care discussed with patient. She agrees on going home. She agrees to follow-up with Dr. Alegre within 48 hours. A prescription for Macrobid was forwarded to patient's pharmacy. Patient received a dose of Macrobid in our ED. Patient also requested Phenergan for nausea. A prescription for Phenergan was forwarded to patient's pharmacy. A prescription for Bentyl was also forwarded as patient states she is experiencing intermittent abdominal cramping. Patient voices no other complaints or concerns at this time. Patient declined pelvic exam. We advised the pelvic exam to further explore other possible hospitalizations for the leukocytosis. Portions of this note were created with voice recognition technology. There may be grammatical, spelling, punctuation or sound alike errors 08/24/21 17:13 Discussed with .: Maude Will see patient in: office Counseled pt/family regarding: lab results, diagnosis, need for follow-up, rad results - Departure Departure Disposition: Home Clinical Impression: Leukocytosis, UTI (urinary tract infection), Microscopic hematuria, Lung granuloma Condition: Stable Critical Care Time: No Referrals: [facility] [Primary Care Provider] - Follow up/PCP as directed Instructions: Urinary Tract Infection, Adult (DC) Additional Instructions: Discharge/Care Plan DAY,JASWANT COTTRELL was seen on 08/24/21 in the Emergency Room. The patient was counseled regarding Diagnosis,Lab results, Imaging studies, need for follow up and when to return to the Emergency Room. Prescriptions given: Discharge Note I have spoken with the patient and/or caregivers. I have explained the patient's condition, diagnosis and treatment plan based on the information available to me at this time. I have answered the patient's and/or caregiver's questions and addressed any concerns. The patient and/or caregivers have as good understanding of the patient's diagnosis, condition and treatment plan as can be expected at this point. The vital signs have been stable. The patient's condition is stable and appropriate for discharge from the emergency department. The patient will pursue further outpatient evaluation with the primary care physician or other designated or consulting physician as outlined in the discharge instructions. The patient and/or caregivers are agreeable to this plan of care and follow-up instructions have been explained in detail. The patient and/or caregivers have received these instruction. The patient/and or caregivers are aware that any significant change in condition or worsening of symptoms should prompt an immediate return to this or the closest emergency department or call 911. Prescriptions: Dicyclomine HCl 20 mg [Bentyl 20 mg] 20 mg PO TID 5 Days #15 tablet Nitrofurantoin Macro 100 mg [Macrobid 100MG Capsule] 100 mg PO BID 7 Days #14 cap Promethazine HCl 25 mg [Phenergan 25 mg] 25 mg PO TID PRN 4 Days #12 tablet PRN Reason: Nausea
[2021-08-24] MEDS ORDERED: Zofran 4 MG/2 ML VIAL ONE (13:35)
[2021-08-24] MEDS ORDERED: Sodium Chloride 0.9% 1000 ML 1,000 ML ONE (13:36)
[2021-08-24 14:51] LABS: ALBUMIN 4.5 g/dL (3.5-5.0); ALKALINE PHOSPHATASE 111 U/L (38-126); ANION GAP 12.8 MEQ/L (5-15); BLOOD UREA NITROGEN 13 mg/dL (7-17); CHLORIDE 102 mmol/L (98-107); Calcium 9.6 mg/dL (8.4-10.2); Carbon Dioxide 28 mmol/L (22-30); Creatinine 1 0.93 mg/dL (0.52-1.04); EST GLOMERULAR FILTRATION RATE > 60.0 ML/MIN; Glucose 107 mg/dL (74-106); Potassium 3.7 mmol/L (3.5-5.1); SGOT/AST 40 U/L (14-36); SGPT/ALT 31 U/L (0-35); SODIUM 139 mmol/L (137-145); Total Protein 8.2 g/dL (6.3-8.2)
[2021-08-24 15:01] LABS: Absolute Neutrophil Ct (ANC) 14.22 x10^3/uL (1.4-6.9); Basophil (Absolute #) 0.06 x10^3/uL (0-0.4); Eosinophil % 1.3 % (0.00-5.0); Eosinophil (Absolute #) 0.22 x10^3/uL (0-0.5); Hematocrit 45.8 % (35-47); Lymphocyte (Absolute #) 1.82 x10^3/uL (1.0-4.6); Lymphocytes % 10.5 % (24.0-44.0); Mean Cell Volume 86.7 fL (78-100); Mean Corpuscular Hemoglobin 28.4 pg (26-32); Mean Corpuscular Hgb Concent. 32.8 g/dL (32-36); Mean Platelet Volume 10.8 fL (7.5-11.0); Monocyte (Absolute #) 0.87 x10^3/uL (0.0-1.3); Neutrophil % 82.4 % (36.0-66.0); Platelet Count 401 x10^3/uL (150-450); Red Blood Count 5.28 x10^6/uL (4.1-5.4); Red Cell Distribution Width 13.4 % (11.5-14.0); White Blood Count 17.3 x10^3/uL (4.0-10.5)
[2021-08-24 15:05] LABS: Epithelial Cells FEW /HPF (FEW); Mucus MANY /HPF (NEGATIVE)
[2021-08-24 15:18] LABS: Hyaline Casts 26-50 /LPF (0-2)
[2021-08-24 15:19] LABS: Appearance SLIGHTLY CLOUDY (CLEAR); Bilirubin SMALL (NEGATIVE); Dipstick done @ ? MAIN LAB; Glucose NEGATIVE (NEGATIVE); Ketones TRACE (NEGATIVE); Nitrite NEGATIVE (NEGATIVE); Protein,Urine Dip 100 (Negative); RBC LARGE Ery/ul (0-5); Specific Gravity >=1.030 (1.005-1.025); Urobilinogen 0.2 mg/dL (0-1)
[2021-08-24 15:21] LABS: Urine Cultured Indicated? YES
--- NOTE | 2021-08-24 16:21 | XRAY ---
Indication: Pain with bowel movement 3 days. Vomiting. Multiple contiguous axial images obtained through the abdomen and pelvis without contrast. Comparison: None Lung bases demonstrate small right base calcified granuloma. No infiltrate or effusion. Heart not enlarged. Noncontrasted stomach and bowel loops nonobstructed with normal appendix. Little to no colonic fecal debris. Previous cholecystectomy. Remaining liver, pancreas, spleen, adrenal glands, kidneys, ureters, bladder, uterus, and aorta are unremarkable for noncontrast exam. Osseous structures intact. No ventral or inguinal hernias. Impression: Negative CT abdomen/pelvis without contrast exam.
[2021-08-24] MEDS ORDERED: MORPHINE SULFATE 4 MG INJ IV ONE (16:53)
[2021-08-24] MEDS ORDERED: Macrobid 100MG Capsule PO ONE (16:53)
[2021-08-24] MEDS ORDERED: MORPHINE SULFATE 4 MG INJ ONE (16:59)
[2021-08-24] MEDS ORDERED: Macrobid 100MG Capsule ONE (16:59)
[2021-08-24] MEDS ORDERED: NORCO 5/325 MG PO ONE (17:08)
[2021-08-24] MEDS ORDERED: NORCO 5/325 MG ONE (17:19)
[2021-08-24 17:31] VITALS: BP 116/82; PULSE 72
[2021-08-24 17:33] VITALS: O2SAT 97
== END 2021-08-24 17:28 | disposition home or self-care (01) ==
LOC: ED 13:02
DX: N39.0 Urinary tract infection, site not specified (principal); R31.29 Other microscopic hematuria; D72.829 Elevated white blood cell count, unspecified; J84.10 Pulmonary fibrosis, unspecified; R10.2 Pelvic and perineal pain; R11.2 Nausea with vomiting, unspecified; Z72.0 Tobacco use; Z79.899 Other long term (current) drug therapy; Z28.310 Unvaccinated for COVID-19
CPT/HCPCS: 36000; 36415; 74176; 80053; 81015; 81025; 84484; 85025; 87086; 96360; 96374; 96375; 99284; J2270; J2405; A9270-GY

== ENCOUNTER 2021-08-27 14:40 | Observation (INO) | payer OTHER ==
[2021-08-27] MEDS ORDERED: Zofran 4 MG/2 ML VIAL IV ONE (15:01)
[2021-08-27] MEDS ORDERED: Sodium Chloride 0.9% 1000 ML 1,000 ML IV STA (15:01)
[2021-08-27] MEDS ORDERED: Sodium Chloride 0.9% 1000 ML 1,000 ML ONE (15:07)
[2021-08-27] MEDS ORDERED: Zofran 4 MG/2 ML VIAL ONE (15:07)
[2021-08-27 15:23] LABS: Absolute Neutrophil Ct (ANC) 10.74 x10^3/uL (1.4-6.9); Basophil (Absolute #) 0.06 x10^3/uL (0-0.4); Eosinophil % 1.4 % (0.00-5.0); Eosinophil (Absolute #) 0.22 x10^3/uL (0-0.5); Hemoglobin 15.7 g/dL (12.0-16.0); Lymphocytes % 22.6 % (24.0-44.0); Mean Cell Volume 84.1 fL (78-100); Mean Corpuscular Hemoglobin 28.1 pg (26-32); Mean Corpuscular Hgb Concent. 33.4 g/dL (32-36); Mean Platelet Volume 10.2 fL (7.5-11.0); Monocytes % 5.8 % (0.0-12.0); Neutrophil % 69.5 % (36.0-66.0); Platelet Count 467 x10^3/uL (150-450); Red Blood Count 5.59 x10^6/uL (4.1-5.4); Red Cell Distribution Width 13.2 % (11.5-14.0); White Blood Count 15.5 x10^3/uL (4.0-10.5)
[2021-08-27 15:40] LABS: ALBUMIN 4.7 g/dL (3.5-5.0); ALKALINE PHOSPHATASE 115 U/L (38-126); ANION GAP 16.9 MEQ/L (5-15); BLOOD UREA NITROGEN 11 mg/dL (7-17); CHLORIDE 103 mmol/L (98-107); Calcium 10.1 mg/dL (8.4-10.2); Carbon Dioxide 23 mmol/L (22-30); Creatinine 1 0.83 mg/dL (0.52-1.04); EST GLOMERULAR FILTRATION RATE > 60.0 ML/MIN; Glucose 137 mg/dL (74-106); LIPASE 51 U/L (23-300); Potassium 3.4 mmol/L (3.5-5.1); SGOT/AST 30 U/L (14-36); SGPT/ALT 26 U/L (0-35); SODIUM 140 mmol/L (137-145); Total Protein 8.6 g/dL (6.3-8.2)
[2021-08-27] MEDS ORDERED: BENADRYL 50 MG/ML IV ONE (15:59)
[2021-08-27] MEDS ORDERED: BENADRYL 50 MG/ML ONE (16:08)
--- NOTE | 2021-08-27 16:44 | ERPHSYRPT ---
- History of Present Illness Time Seen by Provider: 08/27/21 15:02 Historian: patient Exam Limitations: no limitations Patient Subjective Stated Complaint: Pt states "I was here a couple of days ago for the same thing and I thought I was getting better but now I am vomiting again." Triage Nursing Assessment: Pt presented alert and oriented X3, skin pwd Pt ambulates with an upright steady gait, able to speak in clear full sentences. Pt dry heaving into emesis bag. Physician History: 35-year-old female presented in the ER with 5-day history of intermittent nausea vomiting with abdominal pain and loose stool. Patient was evaluated in the ER 3 days ago in here with diagnosis of UTI. Patient reports she started to feel better but since morning having multiple episodes of nonprojectile, nonbilious vomiting and is unable to hold anything down. Feels weak fatigued tired and dehydrated. Does report having similar symptoms multiple times in the past and extensive work-up done outpatient did not reveal any specific cause. Timing/Duration: day(s) (5), intermittent, gradual onset, worse Quality: cramping, sharpness Abdominal Pain Onset Location: generalized abdomen Pain Radiation: no radiation Severity of Pain-Max: moderate Severity of Pain-Current: moderate Modifying Factors: Improves With: nothing Associated Symptoms: diarrhea, nausea, vomiting Previous symptoms: same symptoms as today Allergies/Adverse Reactions: aspirin Allergy (Severe, Verified 08/24/21 13:07) throat swelling ibuprofen [From Motrin] Allergy (Severe, Verified 08/24/21 13:07) throat swelling Penicillins Allergy (Mild, Verified 08/24/21 13:07) Rash sulfamethoxazole [From Bactrim] Allergy (Mild, Verified 08/24/21 13:07) Rash trimethoprim [From Bactrim] Allergy (Mild, Verified 08/24/21 13:07) Rash Home Medications: Levothyroxine Sodium 50 Mcg [Synthroid 50 Mcg] 50 mcg PO DAILY 10/16/14 [History] Diltiazem HCl [Cardizem LA] 120 mg PO BID 08/20/17 [History] Duloxetine HCl [Cymbalta] 60 mg PO DAILY 08/23/17 [History] Loratadine 10 mg [Claritin 10 mg] 10 mg PO DAILY 09/20/19 [History] Metoprolol Tartrate 25 mg [Lopressor 25MG Tab] 25 mg PO BID 03/17/20 [History] Hx Tetanus, Diphtheria Vaccination/Date Given: No Hx Influenza Vaccination/Date Given: No Hx Pneumococcal Vaccination/Date Given: No Immunizations Up to Date: Yes Travel Risk - International Travel Have you traveled outside of the country in past 3 weeks: No - Coronavirus Screening Are you exhibiting any of the following symptoms?: Yes Symptoms: Vomiting/Diarrhea Close contact with a COVID-19 positive Pt in past 14-21 Days: No - Vaccine Status Have you recieved a Covid-19 vaccination: No - Review of Systems Constitutional: Fatigue, Weakness Eyes: No Symptoms Ears, Nose, & Throat: No Symptoms Respiratory: No Symptoms Cardiac: No Symptoms Abdominal/Gastrointestinal: Abdominal Pain, Nausea, Vomiting, Diarrhea Genitourinary Symptoms: No Symptoms Musculoskeletal: No Symptoms Skin: No Symptoms Neurological: No Symptoms Endocrine: No Symptoms Hematologic/Lymphatic: No Symptoms Immunological/Allergic: No Symptoms - Past Medical History Pertinent Past Medical History: Yes Neurological History: No Pertinent History ENT History: No Pertinent History Cardiac History: Arrhythmia, Other Respiratory History: No Pertinent History Endocrine Medical History: Hypothyroidism Musculoskeletal History: No Pertinent History GI Medical History: Colitis, GERD, Other History: No Pertinent History Psycho-Social History: Depression Female Reproductive Disorders: Other Other Medical History: Palpitations- Tachycardia controlled with meds, bacterial vaginosis, ovarian cysts, HYSTOPLASMOSIS, ESOPHAGEAL CANCER, sleep apnea,CELIAC DISEASE - Past Surgical History Past Surgical History: Yes Neuro Surgical History: No Pertinent History Cardiac: No Pertinent History Respiratory: No Pertinent History Gastrointestinal: Cholecystectomy Genitourinary: No Pertinent History Musculoskeletal: No Pertinent History Female Surgical History: No Pertinent History Other Surgical History: BIOPSY LYMPH NODES, LUNG BIOPSY - Social History Smoking Status: Current every day smoker Exposure to second hand smoke: Yes Drug Use: marijuana Patient Lives Alone: No - Female History Hx Last Menstrual Period: 08/18/2021 Hx Now: (unkn) - Nursing Vital Signs Nursing Vital Signs: Initial Vital Signs Temperature 97.8 F 08/27/21 14:46 Pulse Rate 86 08/27/21 14:46 Respiratory Rate 20 08/27/21 14:46 Blood Pressure 92/81 08/27/21 14:46 O2 Sat by Pulse Oximetry 99 08/27/21 14:46 Pain Scale Pain Intensity 4 - Physical Exam General Appearance: no apparent distress, alert Eye Exam: PERRL/EOMI, eyes nml inspection Ears, Nose, Throat Exam: normal ENT inspection, TMs normal, pharynx normal Neck Exam: normal inspection, non-tender, supple, full range of motion Respiratory Exam: normal breath sounds, lungs clear Cardiovascular Exam: regular rate/rhythm, normal heart sounds Gastrointestinal/Abdomen Exam: soft, normal bowel sounds, tenderness (Generalized), No guarding Extremity Exam: normal inspection, normal range of motion Neurologic Exam: alert, oriented x 3, cooperative Skin Exam: normal color SpO2 Interpretation: normal SpO2: 98 O2 Delivery: Room Air Ordered Tests: Active Orders 24 hr Category Date Time Status Clean Catch Urine Specimen STAT Care 08/27/21 16:57 Active IV Insertion STAT Care 08/27/21 15:01 Active BLOOD CULTURE Stat Lab 08/27/21 Ordered CBC W DIFF Stat Lab 08/27/21 15:15 Completed CMP Stat Lab 08/27/21 15:15 Completed HCG QUALITATIVE,SERUM Stat Lab 08/27/21 15:15 Completed LIPASE Stat Lab 08/27/21 15:15 Completed PROCALCITONIN Stat Lab 08/27/21 Ordered UA W/RFX CULTURE Stat Lab 08/27/21 16:57 Completed Urine Triage Profile Stat Lab 08/27/21 17:15 Completed Medication Summary Discontinued Medications Generic Name Dose Route Start Last Admin Trade Name Parasq PRN Reason Stop Dose Admin Diphenhydramine HCl 25 mg 08/27/21 15:59 08/27/21 16:09 Diphenhydramine Hcl 50 Mg/Ml Vial IV 08/27/21 16:00 25 mg STAT ONE Administration Diphenhydramine HCl Confirm 08/27/21 16:08 Diphenhydramine Hcl 50 Mg/Ml Vial Administered 08/27/21 16:09 Dose 50 mg .ROUTE .STK-MED ONE Droperidol 1.25 mg 08/27/21 15:59 08/27/21 16:09 Droperidol 5 Mg/2 Ml Vial IV 08/27/21 16:00 1.25 mg STAT ONE Administration Droperidol Confirm 08/27/21 16:08 Droperidol 5 Mg/2 Ml Vial Administered 08/27/21 16:09 Dose 5 mg .ROUTE .STK-MED ONE Sodium Chloride 1,000 mls @ 999 mls/hr 08/27/21 15:01 08/27/21 16:28 Sodium Chloride 0.9% 1000 Ml IV 08/27/21 16:01 Infused .Q1H1M STA Infusion Sodium Chloride Confirm 08/27/21 15:07 Sodium Chloride 0.9% 1000 Ml Administered 08/27/21 15:08 Dose 1,000 mls @ ud .ROUTE .STK-MED ONE Ondansetron HCl 4 mg 08/27/21 15:01 08/27/21 15:09 Ondansetron Hcl 4 Mg/2 Ml Vial IV 08/27/21 15:02 4 mg STAT ONE Administration Ondansetron HCl Confirm 08/27/21 15:07 Ondansetron Hcl 4 Mg/2 Ml Vial Administered 08/27/21 15:08 Dose 4 mg .ROUTE .STK-MED ONE Prochlorperazine Edisylate 5 mg 08/27/21 17:36 08/27/21 17:39 Prochlorperazine Edisylate 10 Mg/2 Ml Vial IV 08/27/21 17:37 5 mg STAT ONE Administration Prochlorperazine Edisylate Confirm 08/27/21 17:37 Prochlorperazine Edisylate 10 Mg/2 Ml Vial Administered 08/27/21 17:38 Dose 10 mg .ROUTE .STK-MED ONE Lab/Rad Data: Laboratory Result Diagrams 08/27/21 15:15 08/27/21 15:15 Laboratory Results 08/27/21 08/27/21 08/27/21 Range/Units 17:15 16:57 15:15 WBC (4.0-10.5) x10^3/uL RBC (4.1-5.4) x10^6/uL Hgb (12.0-16.0) g/dL Hct (35-47) % MCV (78-100) fL MCH (26-32) pg MCHC (32-36) g/dL RDW (11.5-14.0) % Plt Count (150-450) x10^3/uL MPV (7.5-11.0) fL Gran % (36.0-66.0) % Immature Gran % (Auto) (0.00-0.4) % Nucleat RBC Rel Count (0.00-0.1) % Eos # (Auto) (0-0.5) x10^3/uL Immature Gran # (Auto) (0.00-0.03) x10^3u/L Absolute Lymphs (auto) (1.0-4.6) x10^3/uL Absolute Monos (auto) (0.0-1.3) x10^3/uL Absolute Nucleated RBC (0.00-0.01) x10^3u/L Lymphocytes % (24.0-44.0) % Monocytes % (0.0-12.0) % Eosinophils % (0.00-5.0) % Basophils % (0.0-0.4) % Absolute Granulocytes (1.4-6.9) x10^3/uL Basophils # (0-0.4) x10^3/uL Sodium (137-145) mmol/L Potassium (3.5-5.1) mmol/L Chloride (98-107) mmol/L Carbon Dioxide (22-30) mmol/L Anion Gap (5-15) MEQ/L BUN (7-17) mg/dL Creatinine (0.52-1.04) mg/dL Estimated GFR ML/MIN Glucose (74-106) mg/dL Calcium (8.4-10.2) mg/dL Total Bilirubin (0.2-1.3) mg/dL AST (14-36) U/L ALT (0-35) U/L Alkaline Phosphatase (38-126) U/L Serum Total Protein (6.3-8.2) g/dL Albumin (3.5-5.0) g/dL Lipase (23-300) U/L Serum , Qual NEGATIVE (Negative) Urinalys Dipstick Clnc MAIN LAB Urine Color YELLOW (YELLOW) Urine Appearance CLEAR (CLEAR) Urine pH 8.5 (5-6) Ur Specific [place] 1.020 (1.005-1.025) POC Urine Protein Conf NEGATIVE (Negative) Urine Ketones >=160 (NEGATIVE) Urine Nitrite NEGATIVE (NEGATIVE) Urine Bilirubin NEGATIVE (NEGATIVE) Urine Urobilinogen 0.2 (0-1) mg/dL Urine Leukocytes NEGATIVE (NEGATIVE) Urine WBC (Auto) 0-2 (0-5) /HPF Urine RBC (Auto) 0-2 (0-2) /HPF U Epithel Cells (Auto) RARE (FEW) /HPF Urine Bacteria (Auto) NONE SEEN (NEGATIVE) /HPF Urine RBC NEGATIVE (0-5) Matthew/ul Other Casts (Auto) NEGATIVE (NEGATIVE) /LPF Urine Mucus (Auto) SLIGHT (NEGATIVE) /HPF Ur Culture Indicated? NO Urine Glucose NEGATIVE (NEGATIVE) mg/dL Urine Opiates Level NEGATIVE (NEGATIVE) Ur Methadone NEGATIVE (NEGATIVE) Urine Barbiturates NEGATIVE (NEGATIVE) Ur Phencyclidine (PCP) NEGATIVE (NEGATIVE) Urine Amphetamine NEGATIVE (NEGATIVE) U Benzodiazepine Level NEGATIVE (NEGATIVE) Urine Cocaine NEGATIVE (NEGATIVE) Urine Marijuana (THC) POSITIVE (NEGATIVE) 08/27/21 08/27/21 Range/Units 15:15 15:15 WBC 15.5 H (4.0-10.5) x10^3/uL RBC 5.59 H (4.1-5.4) x10^6/uL Hgb 15.7 (12.0-16.0) g/dL Hct 47.0 (35-47) % MCV 84.1 (78-100) fL MCH 28.1 (26-32) pg MCHC 33.4 (32-36) g/dL RDW 13.2 (11.5-14.0) % Plt Count 467 H (150-450) x10^3/uL MPV 10.2 (7.5-11.0) fL Gran % 69.5 H (36.0-66.0) % Immature Gran % (Auto) 0.3 (0.00-0.4) % Nucleat RBC Rel Count 0.0 (0.00-0.1) % Eos # (Auto) 0.22 (0-0.5) x10^3/uL Immature Gran # (Auto) 0.05 H (0.00-0.03) x10^3u/L Absolute Lymphs (auto) 3.50 (1.0-4.6) x10^3/uL Absolute Monos (auto) 0.90 (0.0-1.3) x10^3/uL Absolute Nucleated RBC 0.00 (0.00-0.01) x10^3u/L Lymphocytes % 22.6 L (24.0-44.0) % Monocytes % 5.8 (0.0-12.0) % Eosinophils % 1.4 (0.00-5.0) % Basophils % 0.4 (0.0-0.4) % Absolute Granulocytes 10.74 H (1.4-6.9) x10^3/uL Basophils # 0.06 (0-0.4) x10^3/uL Sodium 140 (137-145) mmol/L Potassium 3.4 L (3.5-5.1) mmol/L Chloride 103 (98-107) mmol/L Carbon Dioxide 23 (22-30) mmol/L Anion Gap 16.9 H (5-15) MEQ/L BUN 11 (7-17) mg/dL Creatinine 0.83 (0.52-1.04) mg/dL Estimated GFR > 60.0 ML/MIN Glucose 137 H (74-106) mg/dL Calcium 10.1 (8.4-10.2) mg/dL Total Bilirubin 0.60 (0.2-1.3) mg/dL AST 30 (14-36) U/L ALT 26 (0-35) U/L Alkaline Phosphatase 115 (38-126) U/L Serum Total Protein 8.6 H (6.3-8.2) g/dL Albumin 4.7 (3.5-5.0) g/dL Lipase 51 (23-300) U/L Serum , Qual (Negative) Urinalys Dipstick Clnc Urine Color (YELLOW) Urine Appearance (CLEAR) Urine pH (5-6) Ur Specific [place] (1.005-1.025) POC Urine Protein Conf (Negative) Urine Ketones (NEGATIVE) Urine Nitrite (NEGATIVE) Urine Bilirubin (NEGATIVE) Urine Urobilinogen (0-1) mg/dL Urine Leukocytes (NEGATIVE) Urine WBC (Auto) (0-5) /HPF Urine RBC (Auto) (0-2) /HPF U Epithel Cells (Auto) (FEW) /HPF Urine Bacteria (Auto) (NEGATIVE) /HPF Urine RBC (0-5) Matthew/ul Other Casts (Auto) (NEGATIVE) /LPF Urine Mucus (Auto) (NEGATIVE) /HPF Ur Culture Indicated? Urine Glucose (NEGATIVE) mg/dL Urine Opiates Level (NEGATIVE) Ur Methadone (NEGATIVE) Urine Barbiturates (NEGATIVE) Ur Phencyclidine (PCP) (NEGATIVE) Urine Amphetamine (NEGATIVE) U Benzodiazepine Level (NEGATIVE) Urine Cocaine (NEGATIVE) Urine Marijuana (THC) (NEGATIVE) - Progress Progress: re-examined Progress Note: 08/27/21 18:45 35-year-old is evaluated for intractable nausea vomiting. She is given Zofran followed by Inapsine/Benadryl, Compazine, still having dry heaving's. Work-up showed white count of 15 with a slight improvement from his 17 and grossly unremarkable chemistries. Recommended repeat CT abdomen pelvis which patient refused. Discussed with Dr. Alegre, recommended starting on prophylactic antibiotics after obtaining blood cultures and procalcitonin, keeping patient n.p.o., fluids and Phenergan for nausea vomiting. Plan discussed with patient and she is being admitted. Discussed with : Maude Will see patient in: hospital (observation) Counseled pt/family regarding: lab results, diagnosis, need for follow-up - Departure Departure Disposition: Observation Clinical Impression: Intractable nausea and vomiting, Generalized abdominal pain Condition: Stable Critical Care Time: No Referrals: [facility] ALEGRE [Primary Care Provider] - Follow up/PCP as directed
[2021-08-27] MEDS ORDERED: Compazine 10 MG/2 ML IV ONE (17:36)
[2021-08-27] MEDS ORDERED: Compazine 10 MG/2 ML ONE (17:37)
[2021-08-27 17:47] LABS: Appearance CLEAR (CLEAR)
[2021-08-27 17:48] LABS: Bilirubin NEGATIVE (NEGATIVE); Dipstick done @ ? MAIN LAB; Glucose NEGATIVE (NEGATIVE); Ketones >=160 (NEGATIVE); Nitrite NEGATIVE (NEGATIVE); Ph 8.5 (5-6); Protein,Urine Dip NEGATIVE (Negative); RBC NEGATIVE Ery/ul (0-5); Urobilinogen 0.2 mg/dL (0-1)
[2021-08-27 17:49] LABS: Epithelial Cells RARE /HPF (FEW); Mucus SLIGHT /HPF (NEGATIVE); RBC 0-2 /HPF (0-2); WBC 0-2 /HPF (0-5)
[2021-08-27 18:13] LABS: Amphetamine,Urine NEGATIVE (NEGATIVE); Barbiturate,Urine NEGATIVE (NEGATIVE); Benzodiazepine,Urine NEGATIVE (NEGATIVE); Cocaine,Urine NEGATIVE (NEGATIVE); Methadone,Urine NEGATIVE (NEGATIVE); Opiate,Urine NEGATIVE (NEGATIVE); PCP,Urine NEGATIVE (NEGATIVE); THC,Urine POSITIVE (NEGATIVE)
[2021-08-27 18:15] LABS: Bacteria NONE SEEN /HPF (NEGATIVE); Urine Cultured Indicated? NO
[2021-08-27] MEDS ORDERED: PROTONIX 40 MG IV IV ONE ×2 (18:43→18:49)
[2021-08-27] MEDS ORDERED: FLAGYL 500 MG IVPB 500 MG/100 ML BAG IV STA (18:44)
[2021-08-27] MEDS ORDERED: Levofloxacin 500MG/100ML D5W 500 MG/100 ML BAG IV STA (18:44)
[2021-08-27] MEDS ORDERED: FLAGYL 500 MG IVPB 500 MG/100 ML BAG IV ONE (18:49)
[2021-08-27] MEDS ORDERED: Levofloxacin 500MG/100ML D5W 500 MG/100 ML BAG IV ONE (19:00)
[2021-08-27 19:36] LABS: INFLUENZA A NEGATIVE (NEGATIVE); INFLUENZA B NEGATIVE (NEGATIVE); RESPIRATORY SYNCTIAL VIRUS NEGATIVE (Negative); SARS-CoV-2 Xpert Express NEGATIVE (NEGATIVE)
[2021-08-27] MEDS ORDERED: MORPHINE SULFATE 2 MG INJ IV PRN (20:00)
[2021-08-27] MEDS ORDERED: TYLENOL 325 MG PO PRN (20:00)
[2021-08-27] MEDS: Sodium Chloride 0.9% W/ 20 mEq KCl/LITER 1,000 ML IV SCH (20:48)
[2021-08-27] MEDS ORDERED: Sodium Chloride 0.9% 100 ML ONE (22:11)
[2021-08-27] MEDS ORDERED: Phenergan 25 MG INJ ONE (22:11)
[2021-08-27] MEDS: Phenergan 25 MG INJ*** 12.5 MG in Sodium Chloride 0.9% 100 ML IV PRN (22:12)
[2021-08-28] MEDS: FLAGYL 500 MG IVPB 500 MG/100 ML BAG IV SCH ×4 (00:11→18:24)
[2021-08-28] MEDS: Phenergan 25 MG INJ*** 12.5 MG in Sodium Chloride 0.9% 100 ML IV PRN ×3 (02:05→09:49)
[2021-08-28 05:00] LABS: Absolute Neutrophil Ct (ANC) 11.89 x10^3/uL (1.4-6.9); Basophil (Absolute #) 0.02 x10^3/uL (0-0.4); Eosinophil (Absolute #) 0 x10^3/uL (0-0.5); Hematocrit 43.3 % (35-47); Hemoglobin 14.1 g/dL (12.0-16.0); Lymphocyte (Absolute #) 0.87 x10^3/uL (1.0-4.6); Lymphocytes % 6.7 % (24.0-44.0); Mean Cell Volume 87.8 fL (78-100); Mean Corpuscular Hemoglobin 28.6 pg (26-32); Mean Corpuscular Hgb Concent. 32.6 g/dL (32-36); Mean Platelet Volume 10.4 fL (7.5-11.0); Monocyte (Absolute #) 0.23 x10^3/uL (0.0-1.3); Monocytes % 1.8 % (0.0-12.0); Neutrophil % 90.8 % (36.0-66.0); Platelet Count 358 x10^3/uL (150-450); Red Blood Count 4.93 x10^6/uL (4.1-5.4); Red Cell Distribution Width 13.6 % (11.5-14.0); White Blood Count 13.1 x10^3/uL (4.0-10.5)
[2021-08-28 05:24] LABS: ALBUMIN 4.2 g/dL (3.5-5.0); ALKALINE PHOSPHATASE 85 U/L (38-126); ANION GAP 14.8 MEQ/L (5-15); BLOOD UREA NITROGEN 7 mg/dL (7-17); CHLORIDE 106 mmol/L (98-107); Calcium 8.9 mg/dL (8.4-10.2); Carbon Dioxide 21 mmol/L (22-30); Creatinine 1 0.59 mg/dL (0.52-1.04); EST GLOMERULAR FILTRATION RATE > 60.0 ML/MIN; Glucose 133 mg/dL (74-106); SGOT/AST 23 U/L (14-36); SGPT/ALT 23 U/L (0-35); SODIUM 138 mmol/L (137-145); Total Protein 7.5 g/dL (6.3-8.2)
[2021-08-28] MEDS: Sodium Chloride 0.9% W/ 20 mEq KCl/LITER 1,000 ML IV SCH ×2 (05:24→18:23)
--- NOTE | 2021-08-28 08:19 | HP ---
CHIEF COMPLAINT: Vomiting, low abdominal pain. HISTORY OF PRESENT ILLNESS: The patient is a 35-year-old white female who reports that approximately five days ago she developed a problem with some diarrhea. She is having some lower abdominal pain which set off her vomiting. At that time the patient had a urine that looked as though it might be infected though since that time a urine culture had come back negative. She was on oral antibiotics for this. The patient reports a similar episode back in October in [facility] which resulted in a three day stay before the vomiting eventually resolved. The patient reports that she had a third episode of this approximately two years ago in our facility and the same situation where she was in three days roughly before the vomiting stopped and she was able to be discharged home. The patient reports in the interceding times that she has had no problems with nausea or vomiting. PAST MEDICAL/SURGICAL HISTORY: The patient does have a history of depression, anxiety and hypertension. HOME MEDICATIONS: Currently include: Dicyclomine 20 mg t.i.d. PRN for abdominal discomfort likely irritable bowel syndrome, Cardizem 100 mg twice a day, duloxetine 60 mg a day, levothyroxine 50 mcg daily, loratadine 10 mg a day, Lopressor 25 mg twice a day, nitrofurantoin 100 mg twice a day for urinary tract infection which was again proven to the be negative on the culture. She takes promethazine 25 mg every 4 hours on a PRN basis at home. ALLERGIES: ASPIRIN. IBUPROFEN. PENICILLIN. SULFAMETHOXAZOLE. TRIMETHOPRIM. PHYSICAL EXAMINATION: The patient's vital signs on admission showed her temperature 97.8F, pulse 86, respiratory rate 20 and blood pressure 92/81. O2 saturation 99%. HEENT: Normocephalic, atraumatic. Pupils equal round reactive to light. Extraocular movements intact. Oropharynx is somewhat dry. NECK: Supple without lymphadenopathy, thyromegaly or JVD. CHEST: Clear to auscultation. HEART: Regular rate and rhythm. ABDOMEN: Diffusely tender. No palpable masses. EXTREMITIES: Without cyanosis, clubbing or edema. NEUROLOGIC: The patient is alert and oriented x3. No focal deficits were noted. The patient is currently found in bed holding onto an emesis bag with some bilious material in its bag. LAB DATA AND TESTS: The patient's laboratory studies have shown a glucose of 133, BUN 7, creatinine 0.59. Electrolytes were normal. Liver enzymes were normal. She had a white count at 13,100 initially when she first came in it was 17,000 in the emergency room from two days ago. Hemoglobin 14.1, PLT count 258,000. ASSESSMENT: A patient with what appears to be probable typical vomiting syndrome. We are unable to find any specific infections. The urine proved to be negative on culture. Otherwise the patient reports no one else at home has been ill. We did check a procalcitonin level which was not elevated and has been placed empirically on Zosyn for the elevated white count for lack of anything otherwise to be able to do. Presently the patient received Zofran and Compazine. She seems to do the best with IV Phenergan which she is getting presently. We will continue to keep her NPO, hold all of her other medications, discontinue the nitrofurantoin and for observation. The course will likely evolve over the next three days as she has similarly done. The patient had refused repeat CT scan in the emergency room and we reserve the right to ask her to do this once again if she continues to not improve.
[2021-08-28] MEDS: PROTONIX 40 MG IV IV SCH (10:50)
[2021-08-28] MEDS: Levofloxacin 500MG/100ML D5W 500 MG/100 ML BAG IV SCH (10:51)
[2021-08-28] MEDS ORDERED: Zofran 4 MG/2 ML VIAL IV STA (12:39)
[2021-08-28] MEDS: Phenergan 25 MG INJ*** 25 MG in Sodium Chloride 0.9% 100 ML IV PRN ×3 (13:40→21:50)
[2021-08-29] MEDS: FLAGYL 500 MG IVPB 500 MG/100 ML BAG IV SCH ×3 (00:02→12:52)
[2021-08-29] MEDS: Phenergan 25 MG INJ*** 25 MG in Sodium Chloride 0.9% 100 ML IV PRN ×3 (02:09→10:21)
[2021-08-29 04:48] LABS: Hematocrit 39.3 % (35-47); Hemoglobin 12.9 g/dL (12.0-16.0); Mean Cell Volume 86.6 fL (78-100); Mean Corpuscular Hemoglobin 28.4 pg (26-32); Mean Corpuscular Hgb Concent. 32.8 g/dL (32-36); Mean Platelet Volume 10.3 fL (7.5-11.0); Platelet Count 352 x10^3/uL (150-450); Red Blood Count 4.54 x10^6/uL (4.1-5.4); Red Cell Distribution Width 13.7 % (11.5-14.0); White Blood Count 13.6 x10^3/uL (4.0-10.5)
[2021-08-29 05:28] LABS: ALBUMIN 3.9 g/dL (3.5-5.0); ALKALINE PHOSPHATASE 78 U/L (38-126); ANION GAP 12.8 MEQ/L (5-15); BLOOD UREA NITROGEN 8 mg/dL (7-17); CHLORIDE 104 mmol/L (98-107); Calcium 8.8 mg/dL (8.4-10.2); Carbon Dioxide 24 mmol/L (22-30); Creatinine 1 0.71 mg/dL (0.52-1.04); EST GLOMERULAR FILTRATION RATE > 60.0 ML/MIN; Glucose 100 mg/dL (74-106); Potassium 3.6 mmol/L (3.5-5.1); SGOT/AST 55 U/L (14-36); SGPT/ALT 39 U/L (0-35); SODIUM 137 mmol/L (137-145); Total Protein 6.9 g/dL (6.3-8.2)
[2021-08-29] MEDS: Sodium Chloride 0.9% W/ 20 mEq KCl/LITER 1,000 ML IV SCH (06:39)
[2021-08-29] MEDS: Levofloxacin 500MG/100ML D5W 500 MG/100 ML BAG IV SCH (10:56)
[2021-08-29] MEDS: PROTONIX 40 MG IV IV SCH (10:56)
[2021-08-29] MEDS: Lopressor 25MG Tab PO SCH ×2 (12:52→21:33)
[2021-08-29] MEDS: Cymbalta 30 MG Capsule PO SCH (12:52)
[2021-08-29] MEDS: Cardizem CD PO SCH ×2 (12:52→21:32)
[2021-08-29] MEDS ORDERED: Transderm Scop 1.5MG Patch TOP SCH (13:00)
--- NOTE | 2021-08-29 13:57 | PCM.NOTE ---
Date and Time: 08/29/21 1351 Subjective Assessment: Continued vomiting , vomiting during my visits today light yellow to clear. Spiked fever and now chilling.Tender RLQ on exam. Dr Ronald Krishnan notified and asked for CT abd/pelvis results to be called to his [facility]. Objective Exam General Appearance: mild distress (emesis) Neurologic Exam: alert, oriented x 3 (decreased affect) Skin Exam: warm, diaphoresis Eye Exam: eyes nml inspection Ears, Nose, Throat Exam: normal ENT inspection Neck Exam: normal inspection Respiratory Exam: normal breath sounds Cardiovascular Exam: regular rate/rhythm Gastrointestinal/Abdomen Exam: soft, tenderness (with guardingRLQ and epigasrum), guarding Extremity Exam: normal inspection OBJECTIVE DATA Vital Signs: Vital Signs - 24 hr Temp Pulse Resp BP Pulse Ox 08/29/21 12:00 99.5 F 102 H 19 134/80 98 08/29/21 11:48 17 08/29/21 08:00 98.6 F 100 H 17 144/84 99 08/29/21 06:00 16 08/29/21 04:13 97.8 F 100 H 20 116/68 97 08/29/21 02:00 20 08/28/21 23:35 100.2 F 103 H 16 115/62 98 08/28/21 22:00 16 08/28/21 19:20 99.3 F 112 H 18 133/79 99 08/28/21 18:00 20 08/28/21 16:00 98.7 F 107 H 20 132/79 100 08/28/21 14:00 18 Pain Assessment - Last Documented Pain Intensity 0 Pain Scale Used 0-10 Pain Scale Intake and Output: Intake & Output 08/27/21 08/28/21 08/29/21 08/30/21 11:59 11:59 11:59 11:59 Intake Total 902 2985 Output Total 740 2325 Balance 162 660 Weight 93.2 kg Lab Results: Lab Results-Last 24 Hours 08/29/21 08/29/21 Range/Units 04:25 04:25 WBC 13.6 H (4.0-10.5) x10^3/uL RBC 4.54 (4.1-5.4) x10^6/uL Hgb 12.9 (12.0-16.0) g/dL Hct 39.3 (35-47) % MCV 86.6 (78-100) fL MCH 28.4 (26-32) pg MCHC 32.8 (32-36) g/dL RDW 13.7 (11.5-14.0) % Plt Count 352 (150-450) x10^3/uL MPV 10.3 (7.5-11.0) fL Sodium 137 (137-145) mmol/L Potassium 3.6 (3.5-5.1) mmol/L Chloride 104 (98-107) mmol/L Carbon Dioxide 24 (22-30) mmol/L Anion Gap 12.8 (5-15) MEQ/L BUN 8 (7-17) mg/dL Creatinine 0.71 (0.52-1.04) mg/dL Estimated GFR > 60.0 ML/MIN Glucose 100 (74-106) mg/dL Calcium 8.8 (8.4-10.2) mg/dL Total Bilirubin 0.50 (0.2-1.3) mg/dL AST 55 H (14-36) U/L ALT 39 H (0-35) U/L Alkaline Phosphatase 78 (38-126) U/L Serum Total Protein 6.9 (6.3-8.2) g/dL Albumin 3.9 (3.5-5.0) g/dL Radiology Exams: Radiology Procedures Category Date Time Status ABDOMEN AND PELVIS W/0 CONTRAS [CT] Stat Exams 08/29/21 13:44 Ordered CTA HEAD W AND/OR WO CONTRAST [CT] Urgent Exams 08/29/21 13:45 Ordered Assessment/Plan (1) Cyclic vomiting syndrome Status: Acute Assessment & Plan: repeat CT with contrast showed colitis,stopped Phenergan and started Reglan,stopped Flagyl / and started oral Vancomycin.Started Scopalamine patch. (2) Abdominal pain Status: Acute Onset Date: ~08/23/17 Qualifiers: Abdominal location: right lower quadrant Qualified Code(s): R10.31 - Right lower quadrant pain Assessment & Plan: Gen Surg consult Code(s): R10.9 - UNSPECIFIED ABDOMINAL PAIN (3) Leukocytosis Status: Acute Assessment & Plan: CT abd with contrast showed colitis-see med change Code(s): D72.829 - ELEVATED WHITE BLOOD CELL COUNT, UNSPECIFIED
[2021-08-29] MEDS: Reglan 10 MG/2 ML IV SCH ×3 (14:11→21:32)
[2021-08-29 14:40] LABS: TSH, 3RD Generation 0.185 mIU/L (0.47-4.68)
--- NOTE | 2021-08-29 19:54 | XRAY ---
Indication: Right lower quadrant pain, fever, leukocytosis, and intractable emesis. Conventional contrast enhanced CTA brain performed using 80 cc Isovue 370 contrast. Two-dimensional sagittal and coronal reformatted images obtained. Comparison: None Distal internal carotid arteries are bilaterally symmetric without critical stenosis, torsion, or AV malformation. Normal carotid terminus with normal branching A1 and M1 segments bilaterally. More distal anterior cerebral, middle cerebral, and posterior communicating arteries are normal in CTA appearance. Posterior circulation demonstrates dominant larger distal left herbal artery. Remaining basilar, left/right posterior cerebral, and left/right superior cerebral arteries are normal in CTA appearance. Venous drainage/sinuses are unremarkable. No abnormal enhancing intra-or extra-axial mass. Bony calvarium intact. Visualized paranasal sinuses and mastoid air cells are clear. Impression: Normal CTA brain with contrast exam. Comment: Preliminary interpretation made by [facility]. No critical discrepancy.
--- NOTE | 2021-08-29 20:01 | XRAY ---
Indication: Right lower quadrant pain, fever, leukocytosis, and intractable emesis. Multiple contiguous axial images obtained through the abdomen and pelvis using 80 cc Isovue 370 contrast. Comparison: August 24, 2021 Lung bases remain clear again with incidental small right base coccigranuloma. Heart not enlarged. Noncontrasted stomach and bowel loops remain nonobstructed with normal appendix and normal ileocecal junction. Majority of colon demonstrates wall thickening without pericolonic stranding, possible chronic colitis. Again previous cholecystectomy. No free fluid/air. Remaining liver, pancreas, spleen, adrenal glands, kidneys, ureters, bladder, uterus, and aorta are normal in CTA appearance and attenuation. No pathologic retroperitoneal lymphadenopathy. Impression: 1. Diffuse colonic bowel wall thickening without stranding. Rule out chronic cholecystitis. 2. Remaining CT abdomen/pelvis with contrast exam is negative. Comment: Preliminary interpretation made by C. No critical discrepancy.
[2021-08-29] MEDS ORDERED: Cardizem CD PO SCH (22:00)
[2021-08-29] MEDS ORDERED: Lopressor 25MG Tab PO SCH (22:00)
[2021-08-30] MEDS: Sodium Chloride 0.9% W/ 20 mEq KCl/LITER 1,000 ML IV SCH (02:19)
[2021-08-30] MEDS ORDERED: Cymbalta 30 MG Capsule PO SCH (10:00)
[2021-08-30] MEDS: Lopressor 25MG Tab PO SCH (10:20)
[2021-08-30] MEDS: Cymbalta 30 MG Capsule PO SCH (10:20)
[2021-08-30] MEDS: PROTONIX 40 MG IV IV SCH (10:21)
[2021-08-30] MEDS: Cardizem CD PO SCH (10:21)
[2021-08-30] MEDS: Reglan 10 MG/2 ML IV SCH ×3 (10:21→16:09)
[2021-08-30] MEDS: VANCOMYCIN HCL CAPSULE PO SCH ×3 (11:05→16:09)
[2021-08-30 12:31] VITALS: BP 129/79; PULSE 66; O2SAT 98
[2021-08-30 12:46] LABS: FREE TRIODOTHYRONINE 2.34 pg/mL (2.77-5.27); T4 (Thyroxine) 13.4 ug/dL (5.53-10.96)
[2021-08-30 12:53] LABS: 027 TOX PROD PRESUMPTIVE NEGATIVE (NEGATIVE); TOXIGENIC C. DIFF ORG NEGATIVE (NEGATIVE)
--- NOTE | 2021-08-31 11:23 | CONS ---
CONSULT DATE: 08/30/2021 HISTORY: She has hyperemesis. This is her fourth major episode. She has had it four years about a year apart each over the last four years. She has had extensive work up. She has had a cholecystectomy and this was some 12 years ago. She has had at least two EGD's with minimal to no findings. She has had multiple CT scans. Her episodes last about a week to a month. Nausea medicine does not help much. Current episode less than 12 days long. Again, nausea medicine not working very well. She does have a CT abdomen, pelvis and head ordered for today. PHYSICAL EXAMINATION: She is very mildly obese. She has no abdominal fullness. She has no true abdominal tenderness. She states she hurts just a little down in left lower quadrant. White count is normal. IMPRESSION: Hyperemesis syndrome. She has not had any medicine changes in four years. These have all sort of run its course. She has no equilibrium issue to suggest any inner ear disease. She is getting a CT scan to rule out hydrocephalus or increased intracranial pressure. PLAN: I think everything that can be done is being done. I do not know of anything else really. It seems like these are self-limited although they are certainly quite debilitating to her. I do not know whether any tertiary care semi-elective consult on this would be helpful or not.
[2021-09-01 15:00] LABS: Thyroid Pereoxidase (TPO) Ab <8 IU/mL (0-34)
[2021-09-02 08:44] LABS: Thyroglobulin Antibody 4.9 IU/mL (0.0-0.9)
== END 2021-08-30 16:42 | disposition home or self-care (01) ==
LOC: ED 14:40 → MED SURG 19:58
PROVIDERS: ADMIT Family Medicine; ATTEND Family Medicine
DX: R11.15 Cyclical vomiting syndrome unrelated to migraine (principal); R10.30 Lower abdominal pain, unspecified; R19.7 Diarrhea, unspecified; I10 Essential (primary) hypertension; D72.829 Elevated white blood cell count, unspecified; R50.9 Fever, unspecified; Z79.899 Other long term (current) drug therapy; Z20.828 Contact with and (suspected) exposure to other viral communicable diseases
CPT/HCPCS: 0241U; 36000; 36415; 70496; 74177; 80053; 80307; 81015; 82150; 83690; 84145; 84436; 84443; 84481; 84703; 85025; 85027; 86376; 86800; 87040; 87493; 93268; 96360; 96365; 96367; 96374; 96375; 99285; G0378; J1200; J1956; J2270; J2405; J2550; A9270-GY

== ENCOUNTER 2021-10-01 08:34 | Emergency (ER) | payer OTHER ==
[2021-10-01] MEDS ORDERED: Sodium Chloride 0.9% 1000 ML 1,000 ML ONE (09:18)
[2021-10-01] MEDS ORDERED: Sodium Chloride 0.9% 1000 ML 1,000 ML IV STA (09:23)
[2021-10-01 09:31] LABS: Absolute Neutrophil Ct (ANC) 6.32 x10^3/uL (1.4-6.9); Basophil (Absolute #) 0.06 x10^3/uL (0-0.4); Eosinophil % 1.7 % (0.00-5.0); Eosinophil (Absolute #) 0.17 x10^3/uL (0-0.5); Hemoglobin 14.8 g/dL (12.0-16.0); Lymphocyte (Absolute #) 2.59 x10^3/uL (1.0-4.6); Lymphocytes % 26.3 % (24.0-44.0); Mean Cell Volume 88.6 fL (78-100); Mean Corpuscular Hemoglobin 28.5 pg (26-32); Mean Corpuscular Hgb Concent. 32.2 g/dL (32-36); Mean Platelet Volume 10.2 fL (7.5-11.0); Monocyte (Absolute #) 0.62 x10^3/uL (0.0-1.3); Monocytes % 6.3 % (0.0-12.0); Neutrophil % 64.3 % (36.0-66.0); Platelet Count 430 x10^3/uL (150-450); Red Blood Count 5.19 x10^6/uL (4.1-5.4); Red Cell Distribution Width 13.4 % (11.5-14.0); White Blood Count 9.8 x10^3/uL (4.0-10.5)
[2021-10-01 09:42] LABS: ALBUMIN 4.6 g/dL (3.5-5.0); ALKALINE PHOSPHATASE 94 U/L (38-126); ANION GAP 13.3 MEQ/L (5-15); BLOOD UREA NITROGEN 11 mg/dL (7-17); CHLORIDE 103 mmol/L (98-107); Calcium 9.4 mg/dL (8.4-10.2); Carbon Dioxide 27 mmol/L (22-30); Creatinine 1 0.76 mg/dL (0.52-1.04); EST GLOMERULAR FILTRATION RATE > 60.0 ML/MIN; Glucose 104 mg/dL (74-106); LIPASE 41 U/L (23-300); Potassium 4.1 mmol/L (3.5-5.1); SGOT/AST 26 U/L (14-36); SGPT/ALT 24 U/L (0-35); SODIUM 139 mmol/L (137-145); Total Protein 8.1 g/dL (6.3-8.2)
[2021-10-01 09:46] LABS: Bacteria RARE /HPF (NEGATIVE); Epithelial Cells RARE /HPF (FEW); Mucus MANY /HPF (NEGATIVE); WBC 51-100 /HPF (0-5)
[2021-10-01 09:47] LABS: Bilirubin NEGATIVE (NEGATIVE); Glucose NEGATIVE (NEGATIVE); Ketones NEGATIVE (NEGATIVE)
[2021-10-01 09:48] LABS: Appearance CLOUDY (CLEAR); Nitrite POSITIVE (NEGATIVE); Ph 5.5 (5-6); Protein,Urine Dip 30 (Negative); RBC TRACE-INTACT Ery/ul (0-5); Specific Gravity >=1.030 (1.005-1.025); Urobilinogen 0.2 mg/dL (0-1)
[2021-10-01 09:49] LABS: Dipstick done @ ? MAIN LAB
[2021-10-01 09:50] LABS: Urine Cultured Indicated? YES
--- NOTE | 2021-10-01 10:23 | XRAY ---
Indication: Lower abdominal pain and nausea. Multiple contiguous axial images obtained through the abdomen and pelvis without contrast. Comparison: August 24 and August 29, 2021. Lung bases remain clear with stable small right base calcified granuloma. Heart not enlarged. Noncontrasted stomach and bowel loops nonobstructed again with normal appendix. Again cholecystectomy. No free fluid/air. Remaining liver, pancreas, spleen, adrenal glands, kidneys, ureters, bladder, uterus, and aorta are unremarkable for noncontrast exam. Impression: Continued negative CT abdomen/pelvis without contrast exam compared to the 2 CTs last month.
[2021-10-01] MEDS ORDERED: Zofran 4 MG/2 ML VIAL ONE (10:25)
[2021-10-01] MEDS ORDERED: MORPHINE SULFATE 4 MG INJ ONE (10:25)
[2021-10-01] MEDS ORDERED: MORPHINE SULFATE 4 MG INJ IV ONE (10:30)
[2021-10-01] MEDS ORDERED: ROCEPHIN 2 Gm-D5w 50ML BAG** 2 G/50 ML IVPB IV STA (11:15)
[2021-10-01] MEDS ORDERED: ROCEPHIN 2 Gm-D5w 50ML BAG** 2 G/50 ML IVPB IV ONE (11:16)
--- NOTE | 2021-10-01 11:56 | ERPHSYRPT ---
- History of Present Illness Time Seen by Provider: 10/01/21 09:00 Historian: patient Exam Limitations: no limitations Patient Subjective Stated Complaint: Abdominal pain Triage Nursing Assessment: Patient ambulated back to ED and transferred self to bed. Patient A+O x 3. Patient's skin pink, warm and dry. Patient complains of abdominal pain 5/10 that gets worse after during and after having a BM. Patient denies N/V or diarrhea. Abdomen soft and round with BS X 4. Patient states a hot bath helps with pain. She states the pain to abdomen comes and goes and spasms. Physician History: 35-year-old female presented in the ER with chief complaint of generalized abdominal pain off and on going on for last 2 days with progressive worsening. Reports initially with bowel movement and now having pain even after that, m oderate intensity, sharp nature, becomes generalized associated nausea and no vomiting. No fever or chills reported. Timing/Duration: day(s) (2), intermittent, gradual onset, worse Activities at Onset: rest Quality: sharpness Abdominal Pain Onset Location: generalized abdomen Pain Radiation: no radiation Severity of Pain-Max: moderate Severity of Pain-Current: moderate Modifying Factors: Improves With: other (Hot path makes it better) Associated Symptoms: nausea Allergies/Adverse Reactions: aspirin Allergy (Severe, Verified 10/01/21 08:55) throat swelling ibuprofen [From Motrin] Allergy (Severe, Verified 10/01/21 08:55) throat swelling Penicillins Allergy (Mild, Verified 10/01/21 08:55) Rash sulfamethoxazole [From Bactrim] Allergy (Mild, Verified 10/01/21 08:55) Rash trimethoprim [From Bactrim] Allergy (Mild, Verified 10/01/21 08:55) Rash Home Medications: Diltiazem HCl [Cardizem LA] 120 mg PO BID 08/20/17 [History] Duloxetine HCl [Cymbalta] 60 mg PO DAILY 08/23/17 [History] Loratadine 10 mg [Claritin 10 mg] 10 mg PO DAILY 09/20/19 [History] Metoprolol Tartrate 25 mg [Lopressor 25MG Tab] 25 mg PO BID 03/17/20 [History] Hx Tetanus, Diphtheria Vaccination/Date Given: No Hx Influenza Vaccination/Date Given: No Hx Pneumococcal Vaccination/Date Given: No Immunizations Up to Date: Yes Travel Risk - International Travel Have you traveled outside of the country in past 3 weeks: No - Coronavirus Screening Are you exhibiting any of the following symptoms?: No Close contact with a COVID-19 positive Pt in past 14-21 Days: No - Vaccine Status Have you recieved a Covid-19 vaccination: No - Review of Systems Constitutional: No Symptoms Eyes: No Symptoms Ears, Nose, & Throat: No Symptoms Respiratory: No Symptoms Cardiac: No Symptoms Abdominal/Gastrointestinal: Abdominal Pain, Nausea Genitourinary Symptoms: No Symptoms Musculoskeletal: No Symptoms Neurological: No Symptoms Psychological: No Symptoms Endocrine: No Symptoms Hematologic/Lymphatic: No Symptoms Immunological/Allergic: No Symptoms - Past Medical History Pertinent Past Medical History: Yes Neurological History: No Pertinent History ENT History: No Pertinent History Cardiac History: Arrhythmia, Other Respiratory History: No Pertinent History Endocrine Medical History: Hypothyroidism Musculoskeletal History: No Pertinent History GI Medical History: Colitis, GERD, Other History: No Pertinent History Psycho-Social History: Depression Female Reproductive Disorders: Other Other Medical History: Palpitations- Tachycardia controlled with meds, bacterial vaginosis, ovarian cysts, HYSTOPLASMOSIS, ESOPHAGEAL CANCER, sleep apnea,CELIAC DISEASE - Past Surgical History Past Surgical History: Yes Neuro Surgical History: No Pertinent History Cardiac: No Pertinent History Respiratory: No Pertinent History Gastrointestinal: Cholecystectomy Genitourinary: No Pertinent History Musculoskeletal: No Pertinent History Female Surgical History: No Pertinent History Other Surgical History: BIOPSY LYMPH NODES, LUNG BIOPSY - Social History Smoking Status: Never smoker Exposure to second hand smoke: No Drug Use: marijuana Patient Lives Alone: No - Female History Hx Last Menstrual Period: 5 days ago Hx Now: (unkn) - Nursing Vital Signs Nursing Vital Signs: Initial Vital Signs Pulse Rate 92 H 10/01/21 08:58 Respiratory Rate 19 10/01/21 08:58 O2 Sat by Pulse Oximetry 97 10/01/21 08:58 Pain Scale Pain Intensity 6 - Physical Exam General Appearance: no apparent distress, alert Eye Exam: PERRL/EOMI Ears, Nose, Throat Exam: normal ENT inspection, pharynx normal Neck Exam: normal inspection, non-tender, supple, full range of motion Respiratory Exam: normal breath sounds, lungs clear Cardiovascular Exam: regular rate/rhythm, normal heart sounds Gastrointestinal/Abdomen Exam: soft, normal bowel sounds, tenderness (Generalized) Back Exam: normal inspection, normal range of motion, No CVA tenderness Extremity Exam: normal inspection, normal range of motion, pelvis stable Neurologic Exam: alert, oriented x 3, cooperative Skin Exam: normal color SpO2 Interpretation: normal SpO2: 97 O2 Delivery: Room Air Ordered Tests: Active Orders 24 hr Category Date Time Status ABDOMEN AND PELVIS W/0 CONTRAS [CT] Stat Exams 10/01/21 10:13 Completed CBC W DIFF Stat Lab 10/01/21 09:15 Completed CMP Stat Lab 10/01/21 09:15 Completed CULTURE,URINE Stat Lab 10/01/21 09:15 Received HCG,QUALITATIVE URINE Stat Lab 10/01/21 09:15 Completed LIPASE Stat Lab 10/01/21 09:15 Completed UA W/RFX CULTURE Stat Lab 10/01/21 09:15 Completed Medication Summary Discontinued Medications Generic Name Dose Route Start Last Admin Trade Name Freq PRN Reason Stop Dose Admin Sodium Chloride Confirm 10/01/21 09:18 Sodium Chloride 0.9% 1000 Ml Administered 10/01/21 09:19 Dose 1,000 mls @ ud .ROUTE .STK-MED ONE Sodium Chloride 1,000 mls @ 999 mls/hr 10/01/21 09:23 10/01/21 10:27 Sodium Chloride 0.9% 1000 Ml IV 10/01/21 10:23 Infused .Q1H1M STA Infusion Ceftriaxone Sodium/Dextrose 2 g in 50 mls @ 100 mls/hr 10/01/21 11:15 10/01/21 11:58 Rocephin 2 Gm-D5w 50ml Bag IV 10/01/21 11:44 Infused STAT STA Infusion Ceftriaxone Sodium/Dextrose Confirm 10/01/21 11:16 Rocephin 2 Gm-D5w 50ml Bag Administered 10/01/21 11:17 Dose 2 g in 50 mls @ ud IV .STK-MED ONE Morphine Sulfate Confirm 10/01/21 10:25 Morphine Sulfate 4 Mg/Ml Injection Administered 10/01/21 10:26 Dose 4 mg .ROUTE .STK-MED ONE Morphine Sulfate 4 mg 10/01/21 10:30 10/01/21 10:30 Morphine Sulfate 4 Mg/Ml Injection IV 10/01/21 10:31 4 mg STAT ONE Administration Ondansetron HCl Confirm 10/01/21 10:25 Ondansetron Hcl 4 Mg/2 Ml Vial Administered 10/01/21 10:26 Dose 4 mg .ROUTE .STK-MED ONE Ondansetron HCl 4 mg 10/01/21 12:07 10/01/21 10:30 Ondansetron Hcl 4 Mg/2 Ml Vial IV 10/01/21 12:08 4 mg STAT ONE Administration Lab/Rad Data: Laboratory Result Diagrams 10/01/21 09:15 10/01/21 09:15 Laboratory Results 10/01/21 10/01/21 10/01/21 Range/Units 09:15 09:15 09:15 WBC (4.0-10.5) x10^3/uL RBC (4.1-5.4) x10^6/uL Hgb (12.0-16.0) g/dL Hct (35-47) % MCV (78-100) fL MCH (26-32) pg MCHC (32-36) g/dL RDW (11.5-14.0) % Plt Count (150-450) x10^3/uL MPV (7.5-11.0) fL Gran % (36.0-66.0) % Immature Gran % (Auto) (0.00-0.4) % Nucleat RBC Rel Count (0.00-0.1) % Eos # (Auto) (0-0.5) x10^3/uL Immature Gran # (Auto) (0.00-0.03) x10^3u/L Absolute Lymphs (auto) (1.0-4.6) x10^3/uL Absolute Monos (auto) (0.0-1.3) x10^3/uL Absolute Nucleated RBC (0.00-0.01) x10^3u/L Lymphocytes % (24.0-44.0) % Monocytes % (0.0-12.0) % Eosinophils % (0.00-5.0) % Basophils % (0.0-0.4) % Absolute Granulocytes (1.4-6.9) x10^3/uL Basophils # (0-0.4) x10^3/uL Sodium 139 (137-145) mmol/L Potassium 4.1 (3.5-5.1) mmol/L Chloride 103 (98-107) mmol/L Carbon Dioxide 27 (22-30) mmol/L Anion Gap 13.3 (5-15) MEQ/L BUN 11 (7-17) mg/dL Creatinine 0.76 (0.52-1.04) mg/dL Estimated GFR > 60.0 ML/MIN Glucose 104 (74-106) mg/dL Calcium 9.4 (8.4-10.2) mg/dL Total Bilirubin 0.40 (0.2-1.3) mg/dL AST 26 (14-36) U/L ALT 24 (0-35) U/L Alkaline Phosphatase 94 (38-126) U/L Serum Total Protein 8.1 (6.3-8.2) g/dL Albumin 4.6 (3.5-5.0) g/dL Lipase 41 (23-300) U/L Urinalys Dipstick Clnc MAIN LAB Urine Color YELLOW (YELLOW) Urine Appearance CLOUDY (CLEAR) Urine pH 5.5 (5-6) Ur Specific [place] >=1.030 (1.005-1.025) POC Urine Protein Conf 30 (Negative) Urine Ketones NEGATIVE (NEGATIVE) Urine Nitrite POSITIVE (NEGATIVE) Urine Bilirubin NEGATIVE (NEGATIVE) Urine Urobilinogen 0.2 (0-1) mg/dL Urine Leukocytes NEGATIVE (NEGATIVE) Urine WBC (Auto) 51-100 (0-5) /HPF Urine RBC (Auto) 11-15 (0-2) /HPF U Hyaline Cast (Auto) 3-5 (0-2) /LPF U Epithel Cells (Auto) RARE (FEW) /HPF Urine Bacteria (Auto) RARE (NEGATIVE) /HPF Urine RBC TRACE-INTACT (0-5) Matthew/ul Urine Mucus (Auto) MANY (NEGATIVE) /HPF Ur Culture Indicated? YES Urine Glucose NEGATIVE (NEGATIVE) mg/dL Urine HCG, Qual NEGATIVE (Negative) 10/01/21 Range/Units 09:15 WBC 9.8 (4.0-10.5) x10^3/uL RBC 5.19 (4.1-5.4) x10^6/uL Hgb 14.8 (12.0-16.0) g/dL Hct 46.0 (35-47) % MCV 88.6 (78-100) fL MCH 28.5 (26-32) pg MCHC 32.2 (32-36) g/dL RDW 13.4 (11.5-14.0) % Plt Count 430 (150-450) x10^3/uL MPV 10.2 (7.5-11.0) fL Gran % 64.3 (36.0-66.0) % Immature Gran % (Auto) 0.8 H (0.00-0.4) % Nucleat RBC Rel Count 0.0 (0.00-0.1) % Eos # (Auto) 0.17 (0-0.5) x10^3/uL Immature Gran # (Auto) 0.08 H (0.00-0.03) x10^3u/L Absolute Lymphs (auto) 2.59 (1.0-4.6) x10^3/uL Absolute Monos (auto) 0.62 (0.0-1.3) x10^3/uL Absolute Nucleated RBC 0.00 (0.00-0.01) x10^3u/L Lymphocytes % 26.3 (24.0-44.0) % Monocytes % 6.3 (0.0-12.0) % Eosinophils % 1.7 (0.00-5.0) % Basophils % 0.6 (0.0-0.4) % Absolute Granulocytes 6.32 (1.4-6.9) x10^3/uL Basophils # 0.06 (0-0.4) x10^3/uL Sodium (137-145) mmol/L Potassium (3.5-5.1) mmol/L Chloride (98-107) mmol/L Carbon Dioxide (22-30) mmol/L Anion Gap (5-15) MEQ/L BUN (7-17) mg/dL Creatinine (0.52-1.04) mg/dL Estimated GFR ML/MIN Glucose (74-106) mg/dL Calcium (8.4-10.2) mg/dL Total Bilirubin (0.2-1.3) mg/dL AST (14-36) U/L ALT (0-35) U/L Alkaline Phosphatase (38-126) U/L Serum Total Protein (6.3-8.2) g/dL Albumin (3.5-5.0) g/dL Lipase (23-300) U/L Urinalys Dipstick Clnc Urine Color (YELLOW) Urine Appearance (CLEAR) Urine pH (5-6) Ur Specific [place] (1.005-1.025) POC Urine Protein Conf (Negative) Urine Ketones (NEGATIVE) Urine Nitrite (NEGATIVE) Urine Bilirubin (NEGATIVE) Urine Urobilinogen (0-1) mg/dL Urine Leukocytes (NEGATIVE) Urine WBC (Auto) (0-5) /HPF Urine RBC (Auto) (0-2) /HPF U Hyaline Cast (Auto) (0-2) /LPF U Epithel Cells (Auto) (FEW) /HPF Urine Bacteria (Auto) (NEGATIVE) /HPF Urine RBC (0-5) Matthew/ul Urine Mucus (Auto) (NEGATIVE) /HPF Ur Culture Indicated? Urine Glucose (NEGATIVE) mg/dL Urine HCG, Qual (Negative) - Progress Progress: improved Progress Note: 10/01/21 11:52 She is given symptomatic treatment, on reevaluation feeling better. Acute abdomen work-up including CT abdomen pelvis is negative except for UTI and given a dose of Rocephin. We will continue with Keflex to go home. Discussed signs symptoms of worsening needing return to ER which she seems understanding. Stable for discharge. Counseled pt/family regarding: lab results, diagnosis, need for follow-up, rad results - Departure Departure Disposition: Home Clinical Impression: UTI (urinary tract infection), Generalized abdominal pain Condition: Stable Critical Care Time: No Referrals: DUKE MOLINA [Primary Care Provider] - Follow Up with PCP/3 days Instructions: Severe Abdominal Pain, Adult (DC) Additional Instructions: Take Tylenol as needed for pain. Follow-up with primary care for reevaluation. Return to ER for any worsening. Prescriptions: Cephalexin Mh 500 mg [Keflex 500 mg] 500 mg PO TID #21 cap
[2021-10-01 12:07] VITALS: BP 113/75; PULSE 68
[2021-10-01] MEDS ORDERED: Zofran 4 MG/2 ML VIAL IV ONE (12:07)
[2021-10-01 22:16] VITALS: O2SAT 97
== END 2021-10-01 12:09 | disposition home or self-care (01) ==
LOC: ED 08:34
DX: N39.0 Urinary tract infection, site not specified (principal); R10.84 Generalized abdominal pain; R11.0 Nausea; Z79.899 Other long term (current) drug therapy; Z28.310 Unvaccinated for COVID-19
CPT/HCPCS: 36000; 36415; 74176; 80053; 81015; 81025; 83690; 85025; 87077; 87086; 87186; 96360; 96365; 96374; 96375; 99284; J0696; J2270; J2405

== ENCOUNTER 2024-12-03 23:31 | Emergency (ER) | payer OTHER ==
[2024-12-03 23:58] VITALS: TEMP 98.2
--- NOTE | 2024-12-04 00:24 | ERPHSYRPT ---
- History of Present Illness Time Seen by Provider: 12/04/24 00:15 Source: patient Exam Limitations: no limitations Patient Subjective Stated Complaint: pt reports this evening she noted some involuntary muscle twitches, states she initially thought it was her anxiety but became concerned when the muscle twitches started. pt reports she had a dental procedure 2 weeks ago to have two teeth removed but has recovered well from that. she also stated that she switched her thyroid medication to brand name for Synthroid recently. pt denies injury or accident. Triage Nursing Assessment: pt is aox3, pupils perrl, afebrile, resps easy and non labored, cap refill < 3 seconds, radial pulses strong and equal, pt skin pink warm dry. involuntary muscle spasms to the upper extremities noted during exam. Physician History: This is a 38-year-old overweight white female patient arrives by private vehicle and is a patient of Dr. Alegre with a complaint of twitching and muscle spasms. She notices them in her face neck anterior chest wall and anterior abdominal wall. Symptoms began the evening of 12/02/2024 and worsened the evening of 12/03/2024. Patient drove herself to the emergency department. Patient has a history of palpitations/tachycardia, gastroesophageal reflux disease, arrhythmia, depression, hypertension and hypothyroidism. Approximately 1-1/2 weeks ago patient's medication was changed to the brand name Synthroid instead of the generic medication that she was taking for her thyroid issues. Patient has celiac disease and the Synthroid is gluten-free. Patient did take sitz bath and Epsom salt and took extra magnesium prior to arrival this evening. Patient does not have chest pain. She has no shortness of breath. Timing/Duration: yesterday, worse Severity: mild (Moderate) Associated Symptoms: denies symptoms Allergies/Adverse Reactions: aspirin Allergy (Severe, Verified 12/04/24 00:01) throat swelling ibuprofen [From Motrin] Allergy (Severe, Verified 12/04/24 00:01) throat swelling Penicillins Allergy (Mild, Verified 12/04/24 00:01) Rash sulfamethoxazole [From Bactrim] Allergy (Mild, Verified 12/04/24 00:01) Rash trimethoprim [From Bactrim] Allergy (Mild, Verified 12/04/24 00:01) Rash Home Medications: dilTIAZem HCL [Cardizem LA] 240 mg PO DAILY 08/20/17 [History] Duloxetine HCl [Cymbalta] 60 mg PO DAILY 08/23/17 [History] Metoprolol Tartrate 25 mg [Lopressor 25MG Tab] 25 mg PO BID 03/17/20 [History] Levothyroxine Sodium 50 Mcg [Synthroid 50 Mcg] 1 tab PO DAILY 08/23/24 [History] Hx Tetanus, Diphtheria Vaccination/Date Given: No Hx Influenza Vaccination/Date Given: No Hx Pneumococcal Vaccination/Date Given: No Immunizations Up to Date: No Travel Risk - International Travel Have you traveled outside of the country in past 3 weeks: No - Emerging Infectious Disease Are you exhibiting symptoms associated with any current EIDs: No - Review of Systems Constitutional: No Symptoms Eyes: No Symptoms Ears, Nose, & Throat: No Symptoms Respiratory: No Symptoms Cardiac: No Symptoms Abdominal/Gastrointestinal: No Symptoms Genitourinary Symptoms: No Symptoms Musculoskeletal: No Symptoms Skin: No Symptoms Neurological: Other (Muscular twitching face, chest wall anteriorly and abdominal wall anteriorly) Psychological: No Symptoms Endocrine: No Symptoms Hematologic/Lymphatic: No Symptoms Immunological/Allergic: No Symptoms All Other Systems: Reviewed and Negative - Past Medical History Pertinent Past Medical History: Yes Neurological History: No Pertinent History ENT History: No Pertinent History Cardiac History: Arrhythmia, Hypertension, Other Respiratory History: Sleep Apnea Endocrine Medical History: Hypothyroidism Musculoskeletal History: No Pertinent History GI Medical History: Colitis, GERD, Gallbladder Disease, Other History: No Pertinent History Psycho-Social History: Depression Female Reproductive Disorders: Other Other Medical History: Palpitations- Tachycardia controlled with meds, bacterial vaginosis, ovarian cysts, HYSTOPLASMOSIS, ESOPHAGEAL CANCER, sleep apnea,CELIAC DISEASE - Past Surgical History Past Surgical History: Yes Neuro Surgical History: No Pertinent History Cardiac: No Pertinent History Respiratory: No Pertinent History Gastrointestinal: Cholecystectomy Genitourinary: No Pertinent History Musculoskeletal: No Pertinent History Female Surgical History: No Pertinent History Other Surgical History: BIOPSY LYMPH NODES, LUNG BIOPSY - Female History Hx Last Menstrual Period: 11/14/24 Hx Now: No - Social History Smoking Status: Never smoker Exposure to second hand smoke: No Drug Use: marijuana - Social Determinants of Health Will the patient participate in the screening: Yes Do you worry about a steady place to live?: No Do you have any problems with any of the following?: No known problems In the past 12 months,have you had to go without utilities?: No Transportation Issues: No Has anyone in your support network made you feel unsafe?: No Have you or anyone in your house had to go w/o enough food: No - Nursing Vital Signs Nursing Vital Signs: Initial Vital Signs Temperature 98.2 F 12/03/24 23:42 Pulse Rate 78 12/03/24 23:42 Respiratory Rate 16 12/03/24 23:42 Blood Pressure 125/91 12/03/24 23:42 O2 Sat by Pulse Oximetry 98 12/03/24 23:42 Pain Scale Pain Intensity 0 - Physical Exam General Appearance: no apparent distress, alert, anxiety, obese Eye Exam: PERRL/EOMI, eyes nml inspection Ears, Nose, Throat Exam: normal ENT inspection, moist mucous membranes Neck Exam: normal inspection, non-tender, supple, full range of motion Respiratory Exam: normal breath sounds, lungs clear, airway intact, No chest tenderness, No respiratory distress Cardiovascular Exam: regular rate/rhythm, normal heart sounds, normal peripheral pulses Gastrointestinal/Abdomen Exam: soft, normal bowel sounds, tenderness Pelvic Exam: not done Rectal Exam: not done Back Exam: normal inspection, normal range of motion, No CVA tenderness, No vertebral tenderness Extremity Exam: normal inspection, normal range of motion, pelvis stable Neurologic Exam: alert, oriented x 3, cooperative, 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 nml as tested, nml cerebellar function, nml station & gait, sensation nml Skin Exam: normal color, warm, dry SpO2 Interpretation: normal SpO2: 98 O2 Delivery: Room Air - Course Nursing assessment & vital signs reviewed: Yes Ordered Tests: Active Orders 24 hr Category Date Time Status Slubber Hand STAT Care 12/04/24 00:24 Active EKG-ER Only STAT Care 12/04/24 00:24 Active HEAD WITHOUT CONTRAST [CT] Stat Exams 12/04/24 00:21 Completed CBC W DIFF Stat Lab 12/04/24 00:35 Completed CMP Stat Lab 12/04/24 00:35 Completed ETHYL ALCOHOL Stat Lab 12/04/24 00:35 Completed MAG [MAGNESIUM] Stat Lab 12/04/24 00:35 Completed TSH [TSH, 3RD Generation] Stat Lab 12/04/24 00:35 Completed UA W/RFX UR CULTURE Stat Lab 12/04/24 00:37 Completed Urine Triage Profile Stat Lab 12/04/24 00:37 Completed Medication Summary Discontinued Medications Generic Name Dose Route Start Last Admin Trade Name Anam PRN Reason Stop Dose Admin Lorazepam 1 mg 12/04/24 01:11 12/04/24 01:26 Lorazepam 2 Mg/1 Ml 2 Mg Vial IV 12/04/24 01:12 Not Given STAT ONE Lorazepam 1 mg 12/04/24 01:12 12/04/24 01:16 Lorazepam 2 Mg/1 Ml 2 Mg Vial IM 12/04/24 01:13 1 mg STAT ONE Administration Lorazepam Confirm 12/04/24 01:15 Lorazepam 2 Mg/1 Ml 2 Mg Vial Administered 12/04/24 01:16 Dose 2 mg .ROUTE .[employer]-MED ONE Lab/Rad Data: Laboratory Result Diagrams 12/04/24 00:35 12/04/24 00:35 Laboratory Results 12/04/24 12/04/24 12/04/24 Range/Units 00:37 00:37 00:35 WBC (3.98-10.04) x10^3/uL RBC (3.93-5.22) x10^6/uL Hgb (11.2-15.7) g/dL Hct (34.1-44.9) % MCV (79.4-94.8) fL MCH (25.6-32.2) pg MCHC (32.2-35.5) g/dL RDW (11.7-14.4) % Plt Count (182-369) x10^3/uL MPV (9.4-12.3) fL Gran % (34.0-71.1) % Immature Gran % (Auto) (0.001-0.429) % Nucleat RBC Rel Count (0.00-0.2) % Eos # (Auto) (0.04-0.36) x10^3/uL Immature Gran # (Auto) (0.001-0.031) x10^3u/L Absolute Lymphs (auto) (1.18-3.74) x10^3/uL Absolute Monos (auto) (0.24-0.86) x10^3/uL Absolute Nucleated RBC (0.00-0.012) x10^3u/L Lymphocytes % (19.3-51.7) % Monocytes % (4.7-12.5) % Eosinophils % (0.7-5.8) % Basophils % (0.1-1.2) % Absolute Granulocytes (1.56-6.13) x10^3/uL Basophils # (0.01-0.08) x10^3/uL Sodium (135-145) mmol/L Potassium (3.5-5.1) mmol/L Chloride (98-107) mmol/L Carbon Dioxide (22-30) mmol/L Anion Gap (5-15) MEQ/L BUN (7-17) mg/dL Creatinine (0.52-1.04) mg/dL Estimated GFR ML/MIN Glucose (74-106) mg/dL Calcium (8.4-10.2) mg/dL Magnesium (1.6-2.3) mg/dL Total Bilirubin (0.2-1.3) mg/dL AST (14-36) U/L ALT (0-35) U/L Alkaline Phosphatase (38-126) U/L Serum Total Protein (6.3-8.2) g/dL Albumin (3.5-5.0) g/dL Free T4 1.22 (0.78-2.19) ng/dL TSH 3rd Generation (0.470-4.680) mIU/L Urine Color Yellow (Yellow) Urine Appearance Clear (Clear) Urine pH 6.0 (4.6-8.0) Ur Specific [place] <=1.005 (1.005-1.030) Urine Protein Negative (Negative) Urine Glucose (UA) Negative (Negative) mg/dL Urine Ketones Negative (Negative) Urine Blood Negative (Negative) Urine Nitrite Negative (Negative) Urine Bilirubin Negative (Negative) Urine Urobilinogen 0.2 (0.2) mg/dL Ur Leukocyte Esterase Negative (Negative) U Hyaline Cast (Auto) NONE SEEN (0-2) /LPF Urine Microscopic RBC 0-2 (0-5) /HPF Urine Microscopic WBC 0-2 (0-5) /HPF Ur Epithelial Cells None Seen (None Seen) /HPF Urine Bacteria None Seen (None Seen) /HPF Urine Culture Reflexed NO (NO) Urine Opiates Level NEGATIVE (NEGATIVE) Ur Methadone NEGATIVE (NEGATIVE) Urine Barbiturates NEGATIVE (NEGATIVE) Ur Phencyclidine (PCP) NEGATIVE (NEGATIVE) Urine Amphetamine NEGATIVE (NEGATIVE) U Benzodiazepine Level NEGATIVE (NEGATIVE) Urine Cocaine NEGATIVE (NEGATIVE) Urine Marijuana (THC) POSITIVE A (NEGATIVE) Ethyl Alcohol (0-10) mg/dL 12/04/24 12/04/24 12/04/24 Range/Units 00:35 00:35 00:35 WBC 11.0 H (3.98-10.04) x10^3/uL RBC 4.99 (3.93-5.22) x10^6/uL Hgb 13.8 (11.2-15.7) g/dL Hct 43.5 (34.1-44.9) % MCV 87.2 (79.4-94.8) fL MCH 27.7 (25.6-32.2) pg MCHC 31.7 L (32.2-35.5) g/dL RDW 13.2 (11.7-14.4) % Plt Count 357 (182-369) x10^3/uL MPV 10.0 (9.4-12.3) fL Gran % 57.7 (34.0-71.1) % Immature Gran % (Auto) 0.4 (0.001-0.429) % Nucleat RBC Rel Count 0.0 (0.00-0.2) % Eos # (Auto) 0.34 (0.04-0.36) x10^3/uL Immature Gran # (Auto) 0.04 H (0.001-0.031) x10^3u/L Absolute Lymphs (auto) 3.50 (1.18-3.74) x10^3/uL Absolute Monos (auto) 0.72 (0.24-0.86) x10^3/uL Absolute Nucleated RBC 0.00 (0.00-0.012) x10^3u/L Lymphocytes % 31.8 (19.3-51.7) % Monocytes % 6.5 (4.7-12.5) % Eosinophils % 3.1 (0.7-5.8) % Basophils % 0.5 (0.1-1.2) % Absolute Granulocytes 6.36 H (1.56-6.13) x10^3/uL Basophils # 0.06 (0.01-0.08) x10^3/uL Sodium 138 (135-145) mmol/L Potassium 3.6 (3.5-5.1) mmol/L Chloride 102 (98-107) mmol/L Carbon Dioxide 29 (22-30) mmol/L Anion Gap 10.7 (5-15) MEQ/L BUN 9 (7-17) mg/dL Creatinine 0.66 (0.52-1.04) mg/dL Estimated GFR 115.1 ML/MIN Glucose 101 (74-106) mg/dL Calcium 9.3 (8.4-10.2) mg/dL Magnesium 1.8 (1.6-2.3) mg/dL Total Bilirubin < 0.10 L (0.2-1.3) mg/dL AST 18 (14-36) U/L ALT 16 (0-35) U/L Alkaline Phosphatase 67 (38-126) U/L Serum Total Protein 7.7 (6.3-8.2) g/dL Albumin 4.5 (3.5-5.0) g/dL Free T4 (0.78-2.19) ng/dL TSH 3rd Generation 2.348 (0.470-4.680) mIU/L Urine Color (Yellow) Urine Appearance (Clear) Urine pH (4.6-8.0) Ur Specific [place] (1.005-1.030) Urine Protein (Negative) Urine Glucose (UA) (Negative) mg/dL Urine Ketones (Negative) Urine Blood (Negative) Urine Nitrite (Negative) Urine Bilirubin (Negative) Urine Urobilinogen (0.2) mg/dL Ur Leukocyte Esterase (Negative) U Hyaline Cast (Auto) (0-2) /LPF Urine Microscopic RBC (0-5) /HPF Urine Microscopic WBC (0-5) /HPF Ur Epithelial Cells (None Seen) /HPF Urine Bacteria (None Seen) /HPF Urine Culture Reflexed (NO) Urine Opiates Level (NEGATIVE) Ur Methadone (NEGATIVE) Urine Barbiturates (NEGATIVE) Ur Phencyclidine (PCP) (NEGATIVE) Urine Amphetamine (NEGATIVE) U Benzodiazepine Level (NEGATIVE) Urine Cocaine (NEGATIVE) Urine Marijuana (THC) (NEGATIVE) Ethyl Alcohol < 10 (0-10) mg/dL - Progress Progress: improved, re-examined Progress Note: 12/04/24 00:40 My medical decision making and the assignment of moderate complexity of this patient's medical issue today is based on review of the patient's past medical history, review of the patient's medication list, reviewed patient drug allergy list, history present illness and physical findings on examination. The workup in this patient includes CBC, CMP, magnesium level, ethyl alcohol level, urinalysis, urine drug screen, free T4, TSH, CT scan of the head and twelve-lead EKG. Differential diagnosis includes but is not limited to medication reaction/side effects, electrolyte abnormalities, illicit drug use, thyroid abnormalities, acute intracranial abnormality, arrhythmia 12/04/24 01:46 I interpreted the patient's laboratory data results. Based on laboratory data results, there are no acute, emergent medical issues. The CT scan of the head without contrast was interpreted by the radiologist and I reviewed the impression. The impression states normal CT scan of the head without contrast. No obvious abnormality. The patient states that her hand twitching and spasms have resolved. She still feels as though she does have some intermittent twitching. Medical Desision Making - Diagnostic Testing Diagnostic test were ordered, analyzed, and reviewed by me: Yes Radiological Interpretation: Reviewed by me, Teleradiologist Report - Risk of complications Low Risk: Low risk of morbidity from additional dx testing or treatment - Departure Departure Disposition: Home Clinical Impression: Anxiety about health, Muscle twitching, Muscle spasm Condition: Stable Critical Care Time: No Referrals: [facility] [Primary Care Provider, [facility]] - Follow up/PCP as directed Additional Instructions: Call your primary care physician later today, 12/04/2024, to make arrangements for follow-up appointment for further evaluation management.
[2024-12-04 00:40] LABS: BASOPHIL % 0.5 % (0.1-1.2); Basophil (Absolute #) 0.06 x10^3/uL (0.01-0.08); Eosinophil (Absolute #) 0.34 x10^3/uL (0.04-0.36); Hematocrit 43.5 % (34.1-44.9); Hemoglobin 13.8 g/dL (11.2-15.7); IMMATURE GRAN # 0.04 x10^3u/L (0.001-0.031); IMMATURE GRAN % 0.4 % (0.001-0.429); Lymphocyte (Absolute #) 3.50 x10^3/uL (1.18-3.74); Mean Corpuscular Hemoglobin 27.7 pg (25.6-32.2); Mean Corpuscular Hgb Concent. 31.7 g/dL (32.2-35.5); Monocyte (Absolute #) 0.72 x10^3/uL (0.24-0.86); NUCLEATED RBC # 0.00 x10^3u/L (0.00-0.012); NUCLEATED RBC % 0.0 % (0.00-0.2); Platelet Count 357 x10^3/uL (182-369); Red Blood Count 4.99 x10^6/uL (3.93-5.22); White Blood Count 11.0 x10^3/uL (3.98-10.04)
[2024-12-04 00:48] LABS: Glucose, Urine Negative (Negative); Protein,Urine Dip Negative (Negative); RBC 0-2 /HPF (0-5); WBC 0-2 /HPF (0-5)
[2024-12-04 00:54] LABS: Calcium 9.3 mg/dL (8.4-10.2); Carbon Dioxide 29 mmol/L (22-30); Creatinine 1 0.66 mg/dL (0.52-1.04); EST GLOMERULAR FILTRATION RATE 115.1 ML/MIN; ETHYL ALCOHOL < 10 mg/dL (0-10); Glucose 101 mg/dL (74-106); Potassium 3.6 mmol/L (3.5-5.1); SGOT/AST 18 U/L (14-36); SGPT/ALT 16 U/L (0-35); Total Protein 7.7 g/dL (6.3-8.2)
[2024-12-04 00:58] LABS: Amphetamine,Urine NEGATIVE (NEGATIVE); Barbiturate,Urine NEGATIVE (NEGATIVE); Benzodiazepine,Urine NEGATIVE (NEGATIVE); Cocaine,Urine NEGATIVE (NEGATIVE); Methadone,Urine NEGATIVE (NEGATIVE); Opiate,Urine NEGATIVE (NEGATIVE); PCP,Urine NEGATIVE (NEGATIVE); THC,Urine POSITIVE (NEGATIVE)
--- NOTE | 2024-12-04 01:14 | XRAY ---
CLINICAL HISTORY: twitching COMPARISON: 08/29/2021 prior TECHNIQUE: Axial non-contrast CT scan of the brain was performed from the skull base to the high parietal region. One of the following dose-reduction techniques was utilized for this exam: automated exposure control, adjustment of the mA and/or kV according to patient size, and use of iterative reconstruction. FINDINGS: Brain Parenchyma: There is normal attenuation of the cerebral hemispheres, cerebellum, and brainstem. There is no evidence of acute infarct, hemorrhage, or mass effect. There are no abnormal areas of hypoattenuation or hyperattenuation. Ventricular System: The ventricles are normal in size and configuration. There is no evidence of hydrocephalus or ventricular enlargement. Subarachnoid Spaces: The sulci and cisterns are normal. There is no evidence of subarachnoid hemorrhage or extra-axial fluid collections. Cerebellum and Brainstem: There are no masses, lesions, or areas of abnormal density. Orbits: There is a normal appearance of the globes, optic nerves, and extraocular muscles. There is no evidence of orbital masses or abnormal density. Sinuses: The paranasal sinuses are clear. There is no evidence of sinusitis or mucosal thickening. A slightly right-sided deviated nasal septum is seen. Mastoid Air Cells: The mastoid air cells are clear. There is no evidence of mastoiditis. Skull: There is normal skull morphology. IMPRESSION: 1. Normal CT of the head without contrast, showing no obvious abnormality. 2. Overall, interval stable study. MRI of the brain for further evaluation may be obtained if clinically indicated. Electronically Signed by: Zander Levine MD. (12/04/2024 01:13:34 EDT)
[2024-12-04] MEDS ORDERED: Ativan 2 MG/1 ML VIAL ONE (01:15)
[2024-12-04] MEDS: Ativan 2 MG/1 ML VIAL IM ONE (01:16)
[2024-12-04] MEDS: Ativan 2 MG/1 ML VIAL IV ONE (01:26)
[2024-12-04 01:48] VITALS: O2SAT 98
[2024-12-04 01:57] VITALS: BP 109/78; PULSE 84; RESP 17
== END 2024-12-04 01:57 | disposition home or self-care (01) ==
LOC: ED 23:31
DX: F45.9 Somatoform disorder, unspecified (principal); M62.838 Other muscle spasm; R25.3 Fasciculation; I10 Essential (primary) hypertension; Z79.899 Other long term (current) drug therapy